=== PATIENT | female | born 1945 | race African-American/Black ===

== ENCOUNTER 2021-10-06 13:49 | Outpatient (CLI) | payer MEDICARE, MEDICAID, SELFPAY | END 2021-10-06 13:50 | disposition home or self-care (01) | LOC: ANHAUDIO 13:51 | PROVIDERS: Visit Provider Otolaryngology | DX: H90.3 Sensorineural hearing loss, bilateral (principal) | CPT/HCPCS: 92557; 92567 ==

== ENCOUNTER 2021-12-21 09:49 | Outpatient (RCR) | payer MEDICARE, MEDICAID, SELFPAY | END 2021-12-21 23:59 | disposition home or self-care (01) | LOC: ANHAUDIO 09:49 | PROVIDERS: PCP Otolaryngology; Visit Provider Otolaryngology | DX: Z46.1 Encounter for fitting and adjustment of hearing aid (principal) | CPT/HCPCS: V5160; V5261 ==

== ENCOUNTER 2023-08-10 02:51 | Observation (INO) | payer MEDICARE, MEDICAID, SELFPAY ==
[2023-08-10] VITALS (12 sets, daily range): BP systolic 92–128; BP diastolic 46–69; PULSE 74–90; RESP 13–22; TEMP 36.1–36.5; O2SAT 94–100; BMI 24.3
--- NOTE | ~2023-08-10 | US_ITS ---
EXAMINATION: US venous doppler [facility] DATE: 08/10/2023 14:33 INDICATION: Asymmetric lower limb swelling TECHNIQUE: Grayscale ultrasound images without and with compression and Doppler ultrasound images of the bilateral lower extremity veins were obtained. COMPARISON: None. FINDINGS: The visualized portions of right common femoral vein, profunda (deep) femoral vein, femoral vein, pop liteal vein, posterior tibial veins, peroneal veins, gastrocnemius vein and greater saphenous vein ou tflow are patent. The visualized portions of left common femoral vein, profunda femoral vein, femoral vein, popliteal v ein, posterior tibial veins, peroneal veins, gastrocnemius vein and greater saphenous vein outflow ar e patent. IMPRESSION: 1. No deep venous thrombosis in either lower limb. Reviewed, dictated and finalized at location A. RACT IMPLEMENTATION ANALYST
--- NOTE | ~2023-08-10 | CT_ITS ---
Noncontrast CT scan of the lumbar spine CLINICAL HISTORY: Weakness TECHNIQUE: Axial noncontrast imaging of the lumbar spine was performed. Sagittal and coronal reformat jose antonio images were constructed. Dose reduction technique was used on this scan by utilizing automated ex posure control and iterative reconstruction technique. The dose-length product (DLP) was 1314.77 mGy- cm. FINDINGS: There is no fracture or subluxation of the lumbar spine. Vertebral bodies maintain normal h eight and alignment. At L1-L2, there is minimal disc bulge. No spinal canal stenosis or neural foraminal narrowing. At L2-L3, there is mild disc bulge and mild facet arthropathy. Possible minimal central canal stenosi s. There is mild to moderate left neural foraminal narrowing. Right neural foramen preserved. At L3-L4, there is moderate to advanced degenerative disc narrowing. Diffuse disc bulge and advanced facet arthropathy result in moderate to advanced spinal canal stenosis/thecal sac compression. There is moderate to severe left neural foraminal narrowing, and mild right neural foraminal narrowing. At L4-L5, there is severe degenerative disc narrowing. Disc bulge and facet arthropathy result in mod erate central canal stenosis/thecal sac compression. There is mild left neural foraminal narrowing. R ight neural foramen preserved. At L5-S1, there is moderate to advanced degenerative disc narrowing. Diffuse disc bulge and facet art hropathy are present, with moderate to severe spinal canal stenosis/thecal sac compression. There is severe bilateral neural foraminal narrowing, left worse than right. Large amount of stool present the rectum, suggestive of fecal impaction. Extensive atherosclerotic ca lcifications of the aorta are present. There is a 2.8 cm right adrenal nodule, a 1.9 cm left adrenal nodule. These are indeterminate by Hounsfield units. Paravertebral soft tissues otherwise are unremar kable. Impression: No fracture or subluxation. Degenerative spondylosis, especially at L4-L5 and L5-S1. 2.8 cm right adrenal nodule, and 1.9 cm left adrenal nodule, indeterminate. Consider follow-up MR to attempt to confirm adenoma. Reviewed, dictated and finalized at location M. OTICS PROSTHETICS TECHNICIAN Impression: No fracture or subluxation. Degenerative spondylosis, especially at L4-L5 and L5-S1. 2.8 cm right adrenal nodule, and 1.9 cm left adrenal nodule, indeterminate. Con contract project manager follow-up MR to attempt to confirm adenoma.
--- NOTE | ~2023-08-10 | CT_ITS ---
Clinical Indication: Weakness, rib fracture CT Scan of the Chest, Abdomen, and Pelvis without Contrast: Technique: Contiguous sections were acquired throughout the chest, abdomen, and pelvis without IV con trast administration. Dose reduction technique was used on this scan by utilizing automated exposure control and iterative reconstruction technique. The dose-length product (DLP) was 944.18 mGy-cm. Findings: There is no evidence of any significant mediastinal, hilar or axillary lymphadenopathy. There are ext ensive atherosclerotic calcifications of the aorta and coronary arteries. There is no evidence of pleural or pericardial effusion. There are patchy areas of nodularity/tree-in-bud opacity in the inferior right upper lobe, most ever tible with infectious process. There is a fracture of the posterior left ninth rib, though this may b e chronic. Correlate for point tenderness. No other fracture evident. The liver, spleen, pancreas, gallbladder, and kidneys are within normal limits. There is a 2.8 cm rig ht adrenal nodule, with Hounsfield units of 20. There is a 1.9 cm low-density left adrenal nodule, co mpatible with adenoma. There are extensive atherosclerotic calcifications of the aorta. No lymphaden opathy. No bowel obstruction or bowel wall thickening. There is large amount of stool at the rectum, suggesti ve of fecal impaction. Urinary bladder is unremarkable. No adnexal mass seen. No ascites. Impression: Fracture of the posterior left ninth rib, with appearance suggestive of chronic fracture deformity. C orrelate for point tenderness. Patchy areas of nodularity/tree-in-bud opacities in the inferior right upper lobe, compatible with pn eumonia/infection. 1.9 cm left adrenal adenoma. 2.8 cm right adrenal nodule is indeterminate by Hounsfield units, though likely an additional adenoma. Consider MR to attempt to confirm this. Fecal impaction. Reviewed, dictated and finalized at location . EN EQUIPMENT AIDE Impression: Fracture of the posterior left ninth rib, with appearance suggestive of chronic fracture deformity. Correlate for point tenderness. Patchy areas of nodularity/tree-in-bud opacities in the inferior right upper lo be, compatible with pneumonia/infection. 1.9 cm left adrenal adenoma. 2.8 cm right adrenal nodule is indeterminate by Ho unsfield units, though likely an additional adenoma. Consider MR to attempt to confirm this. Fecal impaction.
--- NOTE | ~2023-08-10 | CT_ITS ---
CT head without contrast Indication: Weakness Technique: Serial scans were obtained through the brain without the administration of contrast. Dose reduction technique was used on this scan by utilizing automated exposure control and iterative recon struction technique. The dose-length product (DLP) was 605.33 mGy-cm. Findings: There is no evidence of intracranial hemorrhage, mass lesion, or acute infarct. Small chron ic lacunar right basal ganglia infarct noted. The ventricles and subarachnoid spaces are dilated, con sistent with mild atrophy. Low attenuation regions are seen within the periventricular white matter bilaterally, likely representing changes from chronic microvascular ischemic disease. There is no leif dence of edema, mass effect or midline shift. There is mild sinus disease of the ethmoid sinuses, sp henoid sinuses, and maxillary sinuses. The remaining visualized paranasal sinuses and mastoid air syeda ls are clear. Impression: No intracranial hemorrhage, mass, or acute infarct. Small chronic lacunar infarct in the right basal ganglia. Atrophy and chronic white matter changes, as above. Mild sinusitis, as above. Reviewed, dictated and finalized at location . [employer] Impression: No intracranial hemorrhage, mass, or acute infarct. Small chronic lacunar infarct in the right basal ganglia. Atrophy and chronic white matter changes, as above. Mild sinusitis, as above.
--- NOTE | ~2023-08-10 | XR_ITS ---
Portable chest x-ray Comparison: None Clinical History: Weakness Findings: Mild haziness in the right upper lobe. Left lung clear. Cardiomediastinal silhouette is n ow frankly enlarged. Vascular stents noted left axillary region. There is fracture versus postoperati ve change involving the posterior left eighth rib. Impression: Mild haziness right upper lobe. Correlate for asymmetric pulmonary edema versus infection. Fracture versus postoperative change of the posterior left eighth rib. Reviewed, dictated and finalized at location [employer] Impression: Mild haziness right upper lobe. Correlate for asymmetric pulmonary edema versus infection. Fracture versus postoperative change of the posterior left eighth rib.
--- NOTE | 2023-08-10 02:58 | ECG_ITS ---
Measurements Intervals [place] Rate: 87 P: 6 WA: 167 QRS: -2 QRSD: 76 T: 77 QT: 369 QTc: 446 Interpretive Statements SINUS RHYTHM LEFT VENTRICULAR HYPERTROPHY AND ST-T CHANGE [VOLTAGE CRITERIA PLUS ST/T ABNORMALITY] INFERIOR MYOCARDIAL INFARCTION , OF INDETERMINATE AGE WITH POSTERIOR EXTENSION [40+ ms Q WAVE AND/OR ST/T ABNORMALITY IN II/aV ABNORMAL ECG NO PREVIOUS ECG AVAILABLE FOR COMPARISON Electronically Signed On 08-10-2023 12:39:01 [facility] by Steve Corbett M.D.
[2023-08-10 03:26] LABS: Basophils Absolute Auto 0.1 K/mm3 (0.0-0.1); Basophils Percent Auto 0.5 % (0.2-1.2); Eosinophils Absolute Auto 0.3 K/mm3 (0-0.3); Eosinophils Percent Auto 2.6 % (0-4.4); Hematocrit 33.1 % (37.0-47.0); Hemoglobin 9.8 g/dL (12.0-15.0); Immature Granulocyte Percent A 0.9 % (0-0.5); Lymphocytes Absolute Auto 1.14 K/mm3 (0.9-3.2); Lymphocytes Percent Auto 10.3 % (18.3-44.2); Mean Corpuscular HGB Conc 29.6 g/dl (32-36); Mean Corpuscular Hemoglobin 30.6 pg (26-34); Mean Corpuscular Volume 103.4 fl (80-100); Mean Platelet Volume 9.5 fl (7.4-10.4); Monocytes Absolute Auto 0.8 K/mm3 (0.1-0.6); Monocytes Percent Auto 7.3 % (2.6-8.5); Neutrophils Absolute Auto 8.7 K/mm3 (1.3-6.7); Neutrophils Percent Auto 78.4 % (45.5-73.1); Nucleated Red Blood Cells Absolute Auto 0.1 K/mm3 (0.0-0.012); Nucleated Red Blood Cells Perc 0.7 % (0.0-0.2); Platelet Count Result 243 k/mm3 (150-375); Red Cell Distribution Width 15.7 % (11.5-14.5); White Blood Count 11.1 K/mm3 (4.5-10.0)
--- NOTE | 2023-08-10 03:30 | ED.GENADULT ---
HPI - General Adult General Chief complaint: Weakness Stated complaint: GENERALIZED WEAKNESS Source: patient and other (retirement records) Limitations: altered mental status History of Present Illness HPI narrative: Patient is a 78-year-old female presents to the emergency department by EMS from [facility] [place] for weakness. Per EMS the facility staff stated the patient is normally able to get up and walk by herself but was unable to do so today. Patient is typically alert and oriented x3. Patient has a known history of diabetes mellitus, hypertension, hyperlipidemia, end-stage renal disease on hemodialysis, cognitive communication deficit, GERD , neuropathy, anemia, major depressive disorder. Patient denies any current complaints. Patient knows what year it is and what her name is and where she has currently. Patient denies any pain anywhere, recent injuries, fever, vomiting, abdominal pain, chest pain, difficulty breathing, diarrhea, bloody bowel movements. Patient denies any numbness or focal weakness pain admits to feeling generally weak and tired. Patient is to a slight cough, unsure if there is any sputum production. Patient admits to being on hemodialysis and receiving dialysis regularly as she is supposed to be. patient denies changes in her speech or difficulty swallowing or vision changes. Unknown last known well. Related Data Allergies Allergy/AdvReac Type Severity Reaction Status Date / Time No Known Allergies Allergy Verified 08/10/23 03:27 Review of Systems Review of Systems: A 10 system review of systems was completed on the patient and is negative except for what is stated in the HPI. Nursing and ancillary documentation was reviewed. PMFSH Comments At time of signature, I have reviewed and agree with nursing past medical, surgical, social and family history unless otherwise noted. Please see the nursing chart for further information. There is no relevant family history pertinent to the presenting complaint. Exam Narrative: CONST: No acute distress. Somnolent. HENMT: Head is normocephalic and atraumatic. Dry mucous membranes. No posterior oropharynx erythema. EYES: No conjunctival icterus, injection, or pallor. PERRL. Extraocular motions intact. No nystagmus. NECK: No meningeal signs. No JVD. RESP: Able to speak in full sentences. Normal respiratory effort. CTAB. CARDIO: Regular rate. Regular rhythm. 2+ DP and radial pulses bilaterally. Left upper extremity fistula with palpable thrill and no signs of infection. GI: Nondistended. No tenderness to palpation. Soft. : No CVA tenderness to palpation. SKIN: No rashes or lesions noted on exposed skin. NEURO: Oriented x2-3. Moves all extremities. No focal unilateral weakness. Business Operations Consultant strength is 5/5 bilateral upper extremities. Plantar flexion of the bilateral ankles is 5/5. Sensation intact to noxious stimuli in all 4 extremities. No pronator drift. Limited testing of visual reyna due to patient noncompliance however visual reyna intact to threat in all 4 quadrants bilaterally. no facial asymmetry. EXTREM/MSK/BACK: No pedal edema. PSYCH: Normal affect. Course Vital Signs Vital signs: Vital Signs Temperature 97.6 F 08/10/23 02:52 Pulse Rate 88 08/10/23 02:52 Respiratory Rate 20 08/10/23 02:52 Blood Pressure 128/57 L 08/10/23 02:52 Pulse Oximetry 94 08/10/23 02:52 Oxygen Delivery Room Air 08/10/23 02:52 Temperature 97.6 F 08/10/23 02:52 Pulse Rate 87 08/10/23 06:22 Respiratory Rate 21 H 08/10/23 06:22 Blood Pressure 112/61 08/10/23 06:22 Pulse Oximetry 99 08/10/23 06:22 Oxygen Delivery Room Air 08/10/23 04:35 Medical Decision Making [facility] Narrative Medical decision making narrative: Patient presents with the above complaint. Initial vitals are remarkable for no significant abnormalities. Physical examination as noted above. Plan discussed: Laboratory anal
[2023-08-10 03:34] LABS: Hypochromasia 1+ (NORMAL); Platelet Estimate Adequate (Adequate); Schistocytes None Seen (NORMAL)
[2023-08-10 03:37] LABS: INR 1.1; Prothrombin Time 14.2 Seconds (11.1-14.7)
[2023-08-10 03:38] LABS: Alanine Aminotransferase 16 U/L (6-35); Albumin Level 4.2 g/dL (3.5-5.1); Alkaline Phosphatase 121 U/L (38-126); Anion Gap 8 mmol/L (8-16); Aspartate Amino Transferase 26 U/L (14-36); Bilirubin,Total 0.6 mg/dL (0.2-1.3); Blood Urea Nitrogen 39 mg/dL (7-17); Calcium 10.4 mg/dL (8.4-10.2); Carbon Dioxide 37 mmol/L (22-30); Chloride 91 mmol/L (98-107); Estimated CRCL calculation 7 ml/min; Estimated Glomerular Filt Rate 9; Glucose 143 mg/dL (65-110); Lactic Acid Reflex 2.1 mmol/L (0.7-2.0); Lipase 163 U/L (23-300); Magnesium 2.8 mg/dL (1.6-2.3); Partial Thromboplastin Time 37.3 SECONDS (22.3-36.8); Potassium 4.7 mmol/L (3.4-5.0); Sodium 136 mmol/L (137-145)
[2023-08-10 03:50] LABS: Troponin I 0.023 ng/mL (0.000-0.034)
[2023-08-10] MEDS: SODIUM CHLORIDE 0.9% IV 500 ML 999 ML IV CONT (03:53)
[2023-08-10 03:57] LABS: Fractional Inspired Oxygen 21 %; HCO3 VBG 32.7 mEq/l (24.0-30.0); PCO2 VBG 50.6 mmHg (42.0-48.0)
[2023-08-10 03:58] LABS: Device ROOM AIR; PO2 VBG < 27.0 mmHg (35.0-45.0); pH VBG 7.428 (7.300-7.400)
[2023-08-10 04:09] LABS: Influenza A QL RT-PCR Negative (Negative); Influenza B QL RT-PCR Negative (Negative); RSV RNA, RT-PCR Positive (Negative); SARS-CoV-2 RNA PCR Negative (Negative)
[2023-08-10 04:12] LABS: Appearance Urine Turbid (Clear); Bacteria Urine 4+ /hpf; Bilirubin Urine Negative (Negative); Blood Urine 1+ (Negative); Color Urine Yellow (Yellow); Glucose Urine UA Negative (Negative); Ketones Urine Negative (Negative); Leukocyte Esterase Ur 3+ LEU/UL (Negative); Need Manual Microscopic Reviewed; Nitrate Urine Negative (Negative); Protein Urine 2+ mg/dL (Negative); Specific Grav Ur 1.012 (1.001-1.035); Squamous Epithelial Cell Urine None seen /hpf (Few); Urobilinogen Urine 0.2 mg/dL (<2.0); WBC Urine >100 /hpf
[2023-08-10 04:16] LABS: Barbiturate Screen Urine Negative (Negative); Benzodiazepines Screen Urine Negative (Negative)
[2023-08-10 04:18] LABS: Add Urine Microscopic? YES
[2023-08-10 04:19] LABS: Amphetamine Screen Urine Negative (Negative); Cannabinoid Screen Urine Negative (Negative); Cocaine Screen Urine Negative (Negative); Methadone Screen Urine Negative (Negative); Phencyclidine Screen Urine Negative (Negative)
[2023-08-10 04:20] LABS: Acetaminophen < 10 ug/mL (10-30); Ethanol < 10 mg/dL (<10); Salicylate < 1.0 mg/dL (2-20)
[2023-08-10 04:35] LABS: Thyroid Stimulating Hormone Reflex 0.882 uIU/mL (0.465-4.68)
[2023-08-10 04:36] LABS: Opiate Screen Urine Negative (Negative)
[2023-08-10 05:01] LABS: Ammonia < 9 umol/L (9-30)
[2023-08-10 06:24] LABS: Reflex Lactic Acid Yes or No Add Lactic
[2023-08-10] MEDS: AZITHROMYCIN 500 MG/NS 250 ML 500 MG/250 ML BAG 250 MG IVPB (07:12)
--- NOTE | 2023-08-10 08:34 | PC.NURSE ---
Pt goes to dialysis monday, mon, mon
--- NOTE | 2023-08-10 08:36 | PC.NURSE ---
Report given to Arlet ROWE at [facility].
--- NOTE | 2023-08-10 09:12 | PC.NURSE ---
Patient denied soap suds enema, made aware.
[2023-08-10 09:26] LABS: Lactic Acid 1.4 mmol/L (0.7-2.0)
--- NOTE | 2023-08-10 10:41 | PM.IMHP ---
H&P: HPI History of Present Illness Date/Time: 08/10/23 10:41 Chief Complaint: Altered mental status Narrative: 78yo female with cognitive communication deficit, DM, ESRD and HTN here for altered mental status. Patient is alseep but arouses easily. She is alert but confused. As such, a majority of the hx is obtained from the chart. Patient is normally AOx3. According to EMS notes, patient had generalized weakness, dizziness and changes in her speech. Vital signs were stable. Patient normally able to get up and walk on her own but was unable to do so. Patient denies any symptoms except that 'I can't walk'. She has a cough but unclear if productive. ROS unreliable from the patient. She was brought to the ED for evaluation. Unclear why she was brought in at 230am. She has very been to this facility before. In the ED, patient was hemodynamically stable. WBC was 11K with macrocytic anemia with Hgb 9.8. VBG 7.43/51/27 on RA. Sodium 136, serum bicarb 37 and glucose 143. Lactic acid 2.1 (repeat 1.4) and calcium 10.4. Ammonia <9. TSH normal. UA consistent with UTI. UDS negative. COVID and influenza negative but RSV positive. EKG showing sinus mechanism, QS in inferior leads and ST-T wave changes high lateral leads. CT braiin showing no acute findings but with small chronic lacunar infarcts in right basal ganglia and atrophy. Lumbar CT showing degenerative changes. CT Ch/A/P showing probably chronic left 9th rib fracture, patchy airspace disease RUL and indeterminate bilateral adrenal adenoma but probably adenomas and fecal impaction. She was given 1 liter of fluid and Rocephin and Azithromycin. She was admitted for further care. Spoke with sister who said she was called at 230am and was told that the patient's vital signs okay but they were sending the patient to the hospital but sister does not know why. Review of Systems Review of Systems: ROS unobtainable: Yes unobtainable due to mental status [facility] Past Medical History Medical History (Updated 08/10/23 @ 11:15 by Eugenio Castillo MD) Anemia, macrocytic Cognitive communication deficit Diabetes mellitus with chronic kidney disease ESRD (end stage renal disease) Essential hypertension Gastro-esophageal reflux disease with esophagitis Hx of arterial ischemic stroke Hyperlipidemia Major depressive disorder Other idiopathic peripheral autonomic neuropathy Surgical History Surgical History (Updated 08/10/23 @ 11:03 by Eugenio Castillo MD) Surgical history unknown Family History Family History (Updated 08/10/23 @ 11:03 by Eugenio Castillo MD) Other Family history unknown Social History Social History (Updated 08/10/23 @ 11:07 by Eugenio Castillo MD) Social History: Resides at a prison in [place]. She is listed as a DNR in the nursing notes. Admit date listed as 02/04/23. Sister is listed as responsible green party. Meds Home Medications and Allergies Allergies Allergy/AdvReac Type Severity Reaction Status Date / Time No Known Allergies Allergy Verified 08/10/23 03:27 Vital Signs Vital Signs - 24 hr 08/10/23 02:52 08/10/23 04:35 08/10/23 04:45 Temperature 97.6 F Pulse Rate 88 90 Respiratory Rate 20 19 Blood Pressure 128/57 L 126/69 Pulse Oximetry 94 98 97 Oxygen Delivery Room Air Room Air 08/10/23 06:22 08/10/23 08:35 Temperature Pulse Rate 87 74 Respiratory Rate 21 H 18 Blood Pressure 112/61 99/54 L Pulse Oximetry 99 96 Oxygen Delivery Exam Narrative: AF 97.6 99/54 74 18 96% ra Gen - well-nourished, well-developed female in no acute respiratory distress who is nontoxic-appearing lying semi recumbent in bed HEENT - normocephalic. Atraumatic. Pupils equal round and reactive. Extraocular motions unable to assess. Sclera clear and anicteric. Nares patent. Oropharynx was not visualized. No oral lesions. Moist mucous membranes. Tongue was midline with small whitish coat. Palate donis symmetrically. No facial a
--- NOTE | 2023-08-10 11:54 | PC.NURSE ---
Pt denying soap suds enema, made aware gave verbal order for dulcolax 10mg suppository
--- NOTE | 2023-08-10 12:07 | PC.NURSE ---
This RN asked pt if she would allow me to place a suppository in place of the enema and patient stated i dont want none of that shit . Pt agreed to take miralax and insulin if needed.
--- NOTE | 2023-08-10 12:36 | PC.NURSE ---
This RN assessed pt for dryness, pt stated she was not wet.
--- NOTE | 2023-08-10 12:40 | ADMGEN ---
This patient, Mercy Bryson, was admitted to [facility] Surg Room 309-01. Patient/family oriented to hospital policies and general routines including ID bracelet, bed and alarms, visiting hours, pain management, procedures, bathroom and other care routines, personal items, smoking policy, room service/diet, and visiting hours. Information on how to activate the Rapid Response Team has been discussed. Patient/Family are encouraged to report perceived risks to care and to ask questions if they do not understand what they are told or what they should do.
--- NOTE | 2023-08-10 13:10 | P.CONNP_ITS ---
Assessment and Plan Assessment and plan (1) ESRD (end stage renal disease): Code(s): N18.6 - End stage renal disease Status: Chronic Assessment and Plan: * plan HD tomorrow * continue outpatient dialysis schedule of Mon/Mon/Monday * follows with Dr. Salinas at [facility] (2) Encephalopathy: Code(s): G93.40 - Encephalopathy, unspecified Status: Acute Assessment and Plan: * presumably due to infection issues (RSV, pneunmonia, and UTI) * CT of head without any acute findings * follow mentation * consider further imaging if no improvement with current therapy (3) Pneumonia: Qualifiers: Laterality: unspecified laterality Lung location: unspecified part of lung Pneumonia type: due to unspecified organism Qualified Code(s): J18.9 - Pneumonia, unspecified organism Code(s): J18.9 - Pneumonia, unspecified organism Status: Acute Assessment and Plan: * CT chest with inferior right upper lobe airspace disease * positive cough but no reported fevers * follow culture data * on antibiotics (4) Acute UTI: Code(s): N39.0 - Urinary tract infection, site not specified Status: Acute Assessment and Plan: * admission UA highly suggestive * follow-up on urine culture * on antibiotics (5) RSV infection: Code(s): B33.8 - Other specified viral diseases Status: Acute Assessment and Plan: * noted positivity by ER testing * respiratory status stable * contributing component to confusion/AMS(?) * supportive therapy (6) Weakness: Code(s): R53.1 - Weakness Status: Acute Assessment and Plan: * likely related to infectious issues as noted * PT/OT as tolerated (7) Fecal impaction in rectum: Code(s): K56.41 - Fecal impaction Status: Acute Assessment and Plan: * admisison imaging with fecal impaction * bowel regimen ordered/instituted (Miralax, enema, suppositories...etc) * follow stool output/bowel movements (8) Essential hypertension: Code(s): I10 - Essential (primary) hypertension Status: Chronic Assessment and Plan: * reasonable control at this time * follow trend of hemodynamics (9) Diabetes: Code(s): E11.9 - Type 2 diabetes mellitus without complications Status: Chronic Assessment and Plan: * follow accu-cheks * glycemic control per hospitalists I will continue follow the patient with you while she remains hospitalized and make further recommendations as deemed necessary. Thank you for allowing me to participate in the care of this patient. History of Present Illness Reason for Consult Consult date: 08/10/23 Reason for consult: end stage renal disease Chief Complaint Chief complaint: weakness History of Present Illness Narrative: The patient is a 78-year-old female with a past medical history as outlined below who presented to [facility] Emergency Room from her nursing facility for further evaluation of altered mental status. The patient is normally alert and oriented x3 and according to EMS documentation, she has had generalized weakness, dizziness, and a change in her speech pattern as noted by the nursing staff at her facility. She apparently has been hemodynamically stable and she is normally able to ambulate on her own but has not done so for undisclosed period of time. The patient also admits to this issue by stating that she cannot walk does not elaborate as to the reason wh
--- NOTE | 2023-08-10 13:10 | PM.CNNEP ---
Assessment and Plan Assessment and plan (1) ESRD (end stage renal disease): Code(s): N18.6 - End stage renal disease Status: Chronic Assessment and Plan: plan HD tomorrow continue outpatient dialysis schedule of Mon/Mon/Monday follows with Dr. Salinas at [facility] (2) Encephalopathy: Code(s): G93.40 - Encephalopathy, unspecified Status: Acute Assessment and Plan: presumably due to infection issues (RSV, pneunmonia, and UTI) CT of head without any acute findings follow mentation consider further imaging if no improvement with current therapy (3) Pneumonia: Qualifiers: Laterality: unspecified laterality Lung location: unspecified part of lung Pneumonia type: due to unspecified organism Qualified Code(s): J18.9 - Pneumonia, unspecified organism Code(s): J18.9 - Pneumonia, unspecified organism Status: Acute Assessment and Plan: CT chest with inferior right upper lobe airspace disease positive cough but no reported fevers follow culture data on antibiotics (4) Acute UTI: Code(s): N39.0 - Urinary tract infection, site not specified Status: Acute Assessment and Plan: admission UA highly suggestive follow-up on urine culture on antibiotics (5) RSV infection: Code(s): B33.8 - Other specified viral diseases Status: Acute Assessment and Plan: noted positivity by ER testing respiratory status stable contributing component to confusion/AMS(?) supportive therapy (6) Weakness: Code(s): R53.1 - Weakness Status: Acute Assessment and Plan: likely related to infectious issues as noted PT/OT as tolerated (7) Fecal impaction in rectum: Code(s): K56.41 - Fecal impaction Status: Acute Assessment and Plan: admisison imaging with fecal impaction bowel regimen ordered/instituted (Miralax, enema, suppositories...etc) follow stool output/bowel movements (8) Essential hypertension: Code(s): I10 - Essential (primary) hypertension Status: Chronic Assessment and Plan: reasonable control at this time follow trend of hemodynamics (9) Diabetes: Code(s): E11.9 - Type 2 diabetes mellitus without complications Status: Chronic Assessment and Plan: follow accu-cheks glycemic control per hospitalists I will continue follow the patient with you while she remains hospitalized and make further recommendations as deemed necessary. Thank you for allowing me to participate in the care of this patient. History of Present Illness Reason for Consult Consult date: 08/10/23 Reason for consult: end stage renal disease Chief Complaint Chief complaint: weakness History of Present Illness Narrative: The patient is a 78-year-old female with a past medical history as outlined below who presented to [facility] Emergency Room from her nursing facility for further evaluation of altered mental status. The patient is normally alert and oriented x3 and according to EMS documentation, she has had generalized weakness, dizziness, and a change in her speech pattern as noted by the nursing staff at her facility. She apparently has been hemodynamically stable and she is normally able to ambulate on her own but has not done so for undisclosed period of time. The patient also admits to this issue by stating that she cannot walk does not elaborate as to the reason why. Unfortunately, the history given by the patient on admission is questionable as she was more confused at that time. Workup and evaluation emergency room demonstrated the patient be hemodynamically stable and afebrile. Routine blood test demonstrated a mildly elevated white blood cell count, anemia presumably related to her kidney disease, and a chemistry that was consistent with her known history of end-stage renal disease. Her urinalysis was highly s
[2023-08-10] MEDS: polyethylene glycoL 3350 17 GM POWD.PACK PO (15:45)
[2023-08-10 17:47] LABS: Glucose Point of Care 165 mg/dl (65-105)
[2023-08-10] MEDS: ACETAMINOPHEN 325 MG TABLET 650 MG PO (18:28)
[2023-08-10 21:12] LABS: Glucose Point of Care 133 mg/dl (65-105)
[2023-08-10] MEDS: guaiFENesin 12 HR 600 MG TABCR PO (21:16)
[2023-08-11] VITALS (25 sets, daily range): BP systolic 102–148; BP diastolic 51–75; PULSE 60–96; RESP 12–16; TEMP 35.4–37; O2SAT 95–100
[2023-08-11] MEDS: AZITHROMYCIN 500 MG/NS 250 ML 500 MG/250 ML BAG 250 MG IVPB (05:59)
[2023-08-11 07:06] LABS: Basophils Absolute Auto 0.1 K/mm3 (0.0-0.1); Basophils Percent Auto 0.6 % (0.2-1.2); Eosinophils Absolute Auto 0.3 K/mm3 (0-0.3); Eosinophils Percent Auto 3.9 % (0-4.4); Hematocrit 28.5 % (37.0-47.0); Hemoglobin 8.7 g/dL (12.0-15.0); Immature Granulocyte Absolute 0.07 K/mm3 (0.00-0.031); Immature Granulocyte Percent A 0.9 % (0-0.5); Lymphocytes Absolute Auto 1.03 K/mm3 (0.9-3.2); Lymphocytes Percent Auto 12.7 % (18.3-44.2); Mean Corpuscular HGB Conc 30.5 g/dl (32-36); Mean Corpuscular Hemoglobin 31.3 pg (26-34); Mean Corpuscular Volume 102.5 fl (80-100); Mean Platelet Volume 9.5 fl (7.4-10.4); Monocytes Absolute Auto 0.7 K/mm3 (0.1-0.6); Neutrophils Percent Auto 73.9 % (45.5-73.1); Platelet Count Result 215 k/mm3 (150-375); Red Blood Count 2.78 M/mm3 (4.2-5.4); Red Cell Distribution Width 15.5 % (11.5-14.5); White Blood Count 8.1 K/mm3 (4.5-10.0)
[2023-08-11 07:20] LABS: Hemoglobin A1C 5.5 % (<5.7)
[2023-08-11 07:26] LABS: Iron 56 ug/dL (37-170)
[2023-08-11 07:30] LABS: Alanine Aminotransferase 15 U/L (6-35); Albumin Level 3.5 g/dL (3.5-5.1); Alkaline Phosphatase 90 U/L (38-126); Anion Gap 8 mmol/L (8-16); Aspartate Amino Transferase 32 U/L (14-36); Bilirubin,Total 0.6 mg/dL (0.2-1.3); Blood Urea Nitrogen 54 mg/dL (7-17); Calcium 9.3 mg/dL (8.4-10.2); Carbon Dioxide 33 mmol/L (22-30); Chloride 93 mmol/L (98-107); Estimated CRCL calculation 6 ml/min; Estimated Glomerular Filt Rate 7; Glucose 179 mg/dL (65-110); Magnesium 2.6 mg/dL (1.6-2.3); Phosphorus 4.2 mg/dL (2.5-4.5); Potassium 5.2 mmol/L (3.4-5.0); Sodium 134 mmol/L (137-145)
[2023-08-11 07:35] LABS: Percent Iron Saturation 23 % (20-50)
--- NOTE | 2023-08-11 07:47 | P.PNNP_ITS ---
Progress Note: A&P Assessment and Plan (1) ESRD (end stage renal disease): Code(s): N18.6 - End stage renal disease Status: Chronic Assessment and Plan: * Hemodialysis will be done today. * continue outpatient dialysis schedule of Mon/Mon/Monday * Volume status looks okay. * Blood pressure is fine * potassium was a little high. (2) Encephalopathy: Code(s): G93.40 - Encephalopathy, unspecified Status: Acute Assessment and Plan: * presumably due to infection issues (RSV, pneunmonia, and UTI) * CT of head without any acute findings * Mental status seems pretty good right now. (3) Pneumonia: Qualifiers: Laterality: unspecified laterality Lung location: unspecified part of lung Pneumonia type: due to unspecified organism Qualified Code(s): J18.9 - Pneumonia, unspecified organism Code(s): J18.9 - Pneumonia, unspecified organism Status: Acute Assessment and Plan: * CT chest with inferior right upper lobe airspace disease * positive cough but no reported fevers * Blood and urine cultures pending. * on Zithromax and ceftriaxone (4) Acute UTI: Code(s): N39.0 - Urinary tract infection, site not specified Status: Acute Assessment and Plan: * admission UA highly suggestive * follow-up on urine culture. This is still pending. * on antibiotics as above (5) RSV infection: Code(s): B33.8 - Other specified viral diseases Status: Acute Assessment and Plan: * noted positivity by ER testing * respiratory status stable * The patient is on isolation * contributing component to confusion/AMS(?) * supportive therapy (6) Weakness: Code(s): R53.1 - Weakness Status: Acute Assessment and Plan: * likely related to infectious issues as noted * PT/OT as tolerated (7) Fecal impaction in rectum: Code(s): K56.41 - Fecal impaction Status: Acute Assessment and Plan: * admisison imaging with fecal impaction * bowel regimen ordered/instituted (Miralax, enema, suppositories...etc) * follow stool output/bowel movements (8) Essential hypertension: Code(s): I10 - Essential (primary) hypertension Status: Chronic Assessment and Plan: * blood pressure good at 1:14 a.m. (9) Diabetes: Code(s): E11.9 - Type 2 diabetes mellitus without complications Status: Chronic Assessment and Plan: * follow accu-cheks * glycemic control per hospitalists Subjective Date/time seen: 08/11/23 07:47 Interval history: Patient is comfortable in bed. No cough. Breathing fine off oxygen. Review of Systems Cardiovascular: Cardiovascular: Reports no additional cardiovascular complaints Respiratory: Respiratory: Reports no additional respiratory complaints Gastrointestinal: Gastrointestinal: Reports no additional gastrointestinal complaints Genitourinary: Genitourinary: Reports no additional female genitourinary complaints Exam Narrative: WDWN in NAD skin no rash head ncat lungs clear cor reg no rub abd BS+ nontender and soft ext no edema. Objective Data Vital Signs Vital Signs: Vital Signs - 24 hr 08/10/23 08:35 08/10/23 12:21 08/10/23 14:09 Temperature Pulse Rate 74 80
--- NOTE | 2023-08-11 07:47 | PM.PNNEP ---
Progress Note: A&P Assessment and Plan (1) ESRD (end stage renal disease): Code(s): N18.6 - End stage renal disease Status: Chronic Assessment and Plan: Hemodialysis will be done today. continue outpatient dialysis schedule of Mon/Mon/Monday Volume status looks okay. Blood pressure is fine potassium was a little high. (2) Encephalopathy: Code(s): G93.40 - Encephalopathy, unspecified Status: Acute Assessment and Plan: presumably due to infection issues (RSV, pneunmonia, and UTI) CT of head without any acute findings Mental status seems pretty good right now. (3) Pneumonia: Qualifiers: Laterality: unspecified laterality Lung location: unspecified part of lung Pneumonia type: due to unspecified organism Qualified Code(s): J18.9 - Pneumonia, unspecified organism Code(s): J18.9 - Pneumonia, unspecified organism Status: Acute Assessment and Plan: CT chest with inferior right upper lobe airspace disease positive cough but no reported fevers Blood and urine cultures pending. on Zithromax and ceftriaxone (4) Acute UTI: Code(s): N39.0 - Urinary tract infection, site not specified Status: Acute Assessment and Plan: admission UA highly suggestive follow-up on urine culture. This is still pending. on antibiotics as above (5) RSV infection: Code(s): B33.8 - Other specified viral diseases Status: Acute Assessment and Plan: noted positivity by ER testing respiratory status stable The patient is on isolation contributing component to confusion/AMS(?) supportive therapy (6) Weakness: Code(s): R53.1 - Weakness Status: Acute Assessment and Plan: likely related to infectious issues as noted PT/OT as tolerated (7) Fecal impaction in rectum: Code(s): K56.41 - Fecal impaction Status: Acute Assessment and Plan: admisison imaging with fecal impaction bowel regimen ordered/instituted (Miralax, enema, suppositories...etc) follow stool output/bowel movements (8) Essential hypertension: Code(s): I10 - Essential (primary) hypertension Status: Chronic Assessment and Plan: blood pressure good at 1:14 a.m. (9) Diabetes: Code(s): E11.9 - Type 2 diabetes mellitus without complications Status: Chronic Assessment and Plan: follow accu-cheks glycemic control per hospitalists Subjective Date/time seen: 08/11/23 07:47 Interval history: Patient is comfortable in bed. No cough. Breathing fine off oxygen. Review of Systems Cardiovascular: Cardiovascular: Reports no additional cardiovascular complaints Respiratory: Respiratory: Reports no additional respiratory complaints Gastrointestinal: Gastrointestinal: Reports no additional gastrointestinal complaints Genitourinary: Genitourinary: Reports no additional female genitourinary complaints Exam Narrative: WDWN in NAD skin no rash head ncat lungs clear cor reg no rub abd BS+ nontender and soft ext no edema. Objective Data Vital Signs Vital Signs: Vital Signs - 24 hr 08/10/23 08:35 08/10/23 12:21 08/10/23 14:09 Temperature Pulse Rate 74 80 Respiratory Rate 18 16 Blood Pressure 99/54 L 92/66 L Pulse Oximetry 96 98 Oxygen Delivery Room Air 08/10/23 14:50 08/10/23 14:00 08/10/23 16:00 Temperature 97.7 F Pulse Rate 87 90 Respiratory Rate 22 H Blood Pressure 119/46 L Pulse Oximetry 100 Oxygen Delivery Room Air 08/10/23 21:36 08/10/23 20:00 08/11/23 00:00 Temperature 97.0 F L Pulse Rate 78 81 77 Respiratory Rate 13 Blood Pressure 117/56 L Pulse Oximetry 99 Oxygen Delivery 08/11/23 04:00 08/11/23 06:00 Temperature 96.9 F L Pulse Rate 76 78 Respiratory Rate 12 Blood Pressure 114/54 L Pulse Oximetry 95 Oxygen Delivery Intake/Output Intake/Outpu
[2023-08-11 07:53] LABS: Glucose Point of Care 179 mg/dl (65-105)
[2023-08-11 08:36] LABS: Folic Acid 10.8 ng/mL (2.76->20)
[2023-08-11 08:46] LABS: Hepatitis B Surface Antigen Negative (Negative)
[2023-08-11 09:04] LABS: Hepatitis B Surface Anti Res Negative
[2023-08-11 09:52] LABS: MRSA (PCR) NOT DETECTED (NOT DETECTE)
[2023-08-11] MEDS: EPOETIN ALFA-EPBX 10,000 UNITS/ML VIAL 10000 UNITS IV PUSH (10:30)
[2023-08-11] MEDS: SODIUM CHLORIDE 0.9% IV 1,000 ML 999 ML IV CONT (10:32)
--- NOTE | 2023-08-11 12:43 | PCPTNOTE ---
The patient treatment was not able to be completed in A.M. due to patient out of room for dialysis. Will plan to continue treatment per plan of care.
[2023-08-11 12:48] LABS: Glucose Point of Care 151 mg/dl (65-105)
[2023-08-11] MEDS: ACETAMINOPHEN 325 MG TABLET 650 MG PO (13:31)
[2023-08-11] MEDS: guaiFENesin 12 HR 600 MG TABCR PO ×2 (13:32→21:23)
[2023-08-11] MEDS: GABAPENTIN 300 MG CAPSULE PO ×2 (13:35→17:08)
[2023-08-11] MEDS: CALCIUM ACETATE 667 MG TABLET 1334 MG PO ×2 (13:39→18:37)
--- NOTE | 2023-08-11 13:59 | PM.IMPN ---
Progress Note: A&P Assessment and Plan (1) Encephalopathy: Code(s): G93.40 - Encephalopathy, unspecified Status: Acute Assessment and Plan: Patient brought into the ED for altered mental status and weakness. Probably related to infectious etiology with RSV, PNA and UTI. Has ESRD but doubt uremia. 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 Could explain LUE weakness. TSH and B12, folate normal. Treatment as below. Symptoms better. (2) Elevated lactic acid level: Code(s): R79.89 - Other specified abnormal findings of blood chemistry Status: Acute Assessment and Plan: Lactic only mildly elevated. [place] related to infectious etiology and/or ESRD. Repeat level normal. Does not meet criteria for sepsis. (3) Pneumonia: Qualifiers: Laterality: unspecified laterality Lung location: unspecified part of lung Pneumonia type: due to unspecified organism Qualified Code(s): J18.9 - Pneumonia, unspecified organism Code(s): J18.9 - Pneumonia, unspecified organism Status: Acute Assessment and Plan: CT chest showing inferior right upper lobe airspace disease c/w PNA. She has a cough but no dcumented fevers or elevated WBC. BCx NGTD She was started on Rocephin and Azithro which we will continue (4) Acute UTI: Code(s): N39.0 - Urinary tract infection, site not specified Status: Acute Assessment and Plan: UA is consistent with UTI. UCx collected. Rocephin started. UCx pending. Follow up on UCx results. (5) RSV infection: Code(s): B33.8 - Other specified viral diseases Status: Acute Assessment and Plan: Patient with RSV. Probably contrinuting to her confusion On room air Continue supportive care (6) Weakness: Code(s): R53.1 - Weakness Status: Acute Assessment and Plan: Related to above. PT/OT (7) Anemia, macrocytic: Code(s): D53.9 - Nutritional anemia, unspecified Status: Acute Assessment and Plan: Patient with macrocytic anemia. She appears to have chronic anemia by report probably related to ESRD but unclear on baseline B12/folate normal. Iron 56, TIBC 245, 23%. Ferritin 475 Monitor and transfuse as needed. (8) Diabetes mellitus with chronic kidney disease: Code(s): E11.22 - Type 2 diabetes mellitus with diabetic chronic kidney disease Status: Acute Assessment and Plan: A1c 5.5. The patient's blood glucose was reviewed on 08/11 Glucose remains well controlled. Continue AccuCheks covering with sliding scale. Hypoglycemia protocol available as needed. Continue to monitor. (9) Essential hypertension: Code(s): I10 - Essential (primary) hypertension Status: Chronic Assessment and Plan: Patient's blood pressure was reviewed on 08/11 Blood pressure remains well controlled. Will continue current medications. (10) ESRD (end stage renal disease): Code(s): N18.6 - End stage renal disease Status: Chronic Assessment and Plan: [place] with ESRD relate to DM and HTN(?). HD -. Nephrology consult Resume HD here (11) Cognitive communication deficit: Code(s): R41.841 - Cognitive communication deficit Status: Acute Assessment and Plan: She has an underlying cognitive communication deficit of unclear significance. Probably related to her stroke. Unlikely that she aspirated into the right upper lobe given normal anatomy. Add ASA. Continue Crestor Continue PT and OT. (12) Fecal impaction in rectum: Code(s): K56.41 - Fecal impaction Status: Acute Assessment and Plan: Imaging shows fecal impaction. Started MiraLax. Soapsuds enema was refused Dulcolax suppositories daily x3 days Monitor stool output. Plan Asymmetric edema - doppler negative. Follow DVT prophylaxis - lovenox Code status - full but will
[2023-08-11 16:22] LABS: Glucose Point of Care 267 mg/dl (65-105)
[2023-08-11] MEDS: carvediloL 3.125 MG TABLET PO (17:08)
[2023-08-11] MEDS: INSULIN ASPART (*BKC) 100 UNITS/ML SUB-Q (17:13)
--- NOTE | 2023-08-11 19:00 | PC.NURSE ---
Pt went to dialysis this morning and tolerated well. Pt has been compliant with care and medication. Pt reported left leg pain. Pt was treated with scheduled gabapentin and tylenol. Pt denies any further pain. Pt had bowel movement and was cleaned up by tech and myself. Pt has had one episode of emesis this evening right at shift changes. Pt has been monitored for any changes in status while here.
[2023-08-11] MEDS: ROSUVASTATIN 5 MG TABLET PO (21:23)
[2023-08-11] MEDS: NORTRIPTYLINE HCL 25 MG CAPSULE PO (21:23)
[2023-08-11] MEDS: INSULIN GLARGINE (*BKC) 100 UNITS/ML 10 UNITS SUB-Q (21:25)
[2023-08-11 21:26] LABS: Glucose Point of Care 224 mg/dl (65-105)
[2023-08-12] VITALS (8 sets, daily range): BP systolic 118–120; BP diastolic 60–63; PULSE 76–88; RESP 12–16; TEMP 36.3–36.5; O2SAT 95–97
[2023-08-12] MEDS: AZITHROMYCIN 500 MG/NS 250 ML 500 MG/250 ML BAG 250 MG IVPB (05:33)
[2023-08-12 06:33] LABS: Hematocrit 28.7 % (37.0-47.0); Hemoglobin 8.6 g/dL (12.0-15.0); Mean Corpuscular Hemoglobin 30.6 pg (26-34); Mean Corpuscular Volume 102.1 fl (80-100); Mean Platelet Volume 9.6 fl (7.4-10.4); Platelet Count Result 222 k/mm3 (150-375); Red Blood Count 2.81 M/mm3 (4.2-5.4); Red Cell Distribution Width 15.6 % (11.5-14.5); White Blood Count 8.2 K/mm3 (4.5-10.0)
[2023-08-12 06:45] LABS: Albumin Level 3.4 g/dL (3.5-5.1); Anion Gap 9 mmol/L (8-16); Blood Urea Nitrogen 37 mg/dL (7-17); Calcium 9.1 mg/dL (8.4-10.2); Carbon Dioxide 26 mmol/L (22-30); Chloride 100 mmol/L (98-107); Estimated CRCL calculation 8 ml/min; Estimated Glomerular Filt Rate 9; Glucose 144 mg/dL (65-110); Magnesium 2.5 mg/dL (1.6-2.3); Phosphorus 3.4 mg/dL (2.5-4.5); Potassium 4.3 mmol/L (3.4-5.0); Sodium 135 mmol/L (137-145)
[2023-08-12 07:39] LABS: Glucose Point of Care 178 mg/dl (65-105)
[2023-08-12] MEDS: CALCIUM ACETATE 667 MG TABLET 1334 MG PO ×3 (09:25→18:11)
[2023-08-12] MEDS: carvediloL 3.125 MG TABLET PO ×2 (09:26→18:12)
[2023-08-12] MEDS: DOCUSATE SODIUM 100 MG CAPSULE PO ×2 (09:27→18:12)
[2023-08-12] MEDS: guaiFENesin 12 HR 600 MG TABCR PO ×2 (09:27→20:17)
[2023-08-12] MEDS: polyethylene glycoL 3350 17 GM POWD.PACK PO (09:27)
[2023-08-12] MEDS: ENOXAPARIN 30 MG/0.3 ML SYRINGE SUB-Q (09:27)
[2023-08-12] MEDS: GABAPENTIN 300 MG CAPSULE PO ×3 (09:27→18:12)
[2023-08-12] MEDS: BISACODYL 10 MG SUPPOSITORY RECTAL (09:27)
[2023-08-12] MEDS: ASPIRIN 81 MG CHEWABLE TABLET PO (09:27)
--- NOTE | 2023-08-12 10:27 | P.PNNP_ITS ---
Progress Note: A&P Assessment and Plan (1) ESRD (end stage renal disease): Code(s): N18.6 - End stage renal disease Status: Chronic Assessment and Plan: * Hemodialysis went well yesterday. * continue outpatient dialysis schedule of Mon/Mon/Monday * Volume status looks okay. * Blood pressure is doing well * potassium was a little high. (2) Encephalopathy: Code(s): G93.40 - Encephalopathy, unspecified Status: Acute Assessment and Plan: * mental status seems improved. (3) Pneumonia: Qualifiers: Laterality: unspecified laterality Lung location: unspecified part of lung Pneumonia type: due to unspecified organism Qualified Code(s): J18.9 - Pneumonia, unspecified organism Code(s): J18.9 - Pneumonia, unspecified organism Status: Acute Assessment and Plan: * CT chest with inferior right upper lobe airspace disease * positive cough but no reported fevers * Blood culture negative so far.and urine culture shows E coli. * on Zithromax and ceftriaxone (4) Acute UTI: Code(s): N39.0 - Urinary tract infection, site not specified Status: Acute Assessment and Plan: * admission UA highly suggestive * E coli in the urine. * on antibiotics as above (5) RSV infection: Code(s): B33.8 - Other specified viral diseases Status: Acute Assessment and Plan: * noted positivity by ER testing * No cough or shortness of breath. * On isolation (6) Weakness: Code(s): R53.1 - Weakness Status: Acute Assessment and Plan: * likely related to infectious issues as noted * PT/OT as tolerated (7) Fecal impaction in rectum: Code(s): K56.41 - Fecal impaction Status: Acute Assessment and Plan: * admisison imaging with fecal impaction * bowel regimen ordered/instituted (Miralax, enema, suppositories...etc) * follow stool output/bowel movements (8) Essential hypertension: Code(s): I10 - Essential (primary) hypertension Status: Chronic Assessment and Plan: * blood pressure good at 1:14 a.m. (9) Diabetes: Code(s): E11.9 - Type 2 diabetes mellitus without complications Status: Chronic Assessment and Plan: * follow accu-cheks * glycemic control per hospitalists Subjective Date/time seen: 08/12/23 10:27 Interval history: [place] is feeling pretty good right now. No chest pain or shortness of breath. Exam Narrative: WDWN in NAD skin no rash head ncat lungs clear Bilaterally cor reg no rub abd BS+ nontender and soft ext no edema or cyanosis. Objective Data Vital Signs Vital Signs: Vital Signs - 24 hr 08/11/23 12:23 08/11/23 10:30 08/11/23 10:45 Temperature 98.1 F Pulse Rate 94 87 85 Respiratory Rate 16 Blood Pressure 126/74 114/65 123/61 Pulse Oximetry 08/11/23 11:00 08/11/23 11:15 08/11/23 11:30 Temperature Pulse Rate 88 91 96 Respiratory Rate Blood Pressure 140/74 132/74 131/67 Pulse Oximetry 08/11/23 12:00 08/11/23 12:08 08/11/23 14:00 Temperature 98.3 F Pulse Rate 95 89 93 Respiratory Rate 16 Blood Pressure 102/58 L 127/69 102/54 L Pulse Oximetr
--- NOTE | 2023-08-12 10:27 | PM.PNNEP ---
Progress Note: A&P Assessment and Plan (1) ESRD (end stage renal disease): Code(s): N18.6 - End stage renal disease Status: Chronic Assessment and Plan: Hemodialysis went well yesterday. continue outpatient dialysis schedule of Mon/Mon/Monday Volume status looks okay. Blood pressure is doing well potassium was a little high. (2) Encephalopathy: Code(s): G93.40 - Encephalopathy, unspecified Status: Acute Assessment and Plan: mental status seems improved. (3) Pneumonia: Qualifiers: Laterality: unspecified laterality Lung location: unspecified part of lung Pneumonia type: due to unspecified organism Qualified Code(s): J18.9 - Pneumonia, unspecified organism Code(s): J18.9 - Pneumonia, unspecified organism Status: Acute Assessment and Plan: CT chest with inferior right upper lobe airspace disease positive cough but no reported fevers Blood culture negative so far.and urine culture shows E coli. on Zithromax and ceftriaxone (4) Acute UTI: Code(s): N39.0 - Urinary tract infection, site not specified Status: Acute Assessment and Plan: admission UA highly suggestive E coli in the urine. on antibiotics as above (5) RSV infection: Code(s): B33.8 - Other specified viral diseases Status: Acute Assessment and Plan: noted positivity by ER testing No cough or shortness of breath. On isolation (6) Weakness: Code(s): R53.1 - Weakness Status: Acute Assessment and Plan: likely related to infectious issues as noted PT/OT as tolerated (7) Fecal impaction in rectum: Code(s): K56.41 - Fecal impaction Status: Acute Assessment and Plan: admisison imaging with fecal impaction bowel regimen ordered/instituted (Miralax, enema, suppositories...etc) follow stool output/bowel movements (8) Essential hypertension: Code(s): I10 - Essential (primary) hypertension Status: Chronic Assessment and Plan: blood pressure good at 1:14 a.m. (9) Diabetes: Code(s): E11.9 - Type 2 diabetes mellitus without complications Status: Chronic Assessment and Plan: follow accu-cheks glycemic control per hospitalists Subjective Date/time seen: 08/12/23 10:27 Interval history: [place] is feeling pretty good right now. No chest pain or shortness of breath. Exam Narrative: WDWN in NAD skin no rash head ncat lungs clear Bilaterally cor reg no rub abd BS+ nontender and soft ext no edema or cyanosis. Objective Data Vital Signs Vital Signs: Vital Signs - 24 hr 08/11/23 12:23 08/11/23 10:30 08/11/23 10:45 Temperature 98.1 F Pulse Rate 94 87 85 Respiratory Rate 16 Blood Pressure 126/74 114/65 123/61 Pulse Oximetry 08/11/23 11:00 08/11/23 11:15 08/11/23 11:30 Temperature Pulse Rate 88 91 96 Respiratory Rate Blood Pressure 140/74 132/74 131/67 Pulse Oximetry 08/11/23 12:00 08/11/23 12:08 08/11/23 14:00 Temperature 98.3 F Pulse Rate 95 89 93 Respiratory Rate 16 Blood Pressure 102/58 L 127/69 102/54 L Pulse Oximetry 100 08/11/23 17:08 08/11/23 12:03 08/11/23 16:01 Temperature Pulse Rate 68 92 92 Respiratory Rate Blood Pressure Pulse Oximetry 08/11/23 21:52 08/11/23 20:30 08/12/23 04:00 Temperature 98.3 F Pulse Rate 60 85 87 Respiratory Rate 14 Blood Pressure 111/51 L Pulse Oximetry 96 08/12/23 05:41 08/12/23 09:26 Temperature 97.7 F Pulse Rate 85 88 Respiratory Rate 12 Blood Pressure 120/60 Pulse Oximetry 97 Intake/Output Intake/Output: Intake & Output 08/09/23 08/10/23 08/11/23 08/12/23 23:59 23:59 23:59 23:59 Intake Total 1590 1790 550 Output Total 1999 Balance 1590 -210 550 Meds/Results Medications: Active Medications Generic Name Dose Route Start Last Admin Trade Name Freq IA
[2023-08-12 11:26] LABS: Glucose Point of Care 253 mg/dl (65-105)
[2023-08-12] MEDS: INSULIN ASPART (*BKC) 100 UNITS/ML SUB-Q (12:27)
--- NOTE | 2023-08-12 16:30 | PM.DS ---
DS: Admitting Diagnosis Discharge Date 08/12/23 Admitting Diagnosis Altered mental status DS: Discharge Diagnosis Discharge Diagnosis (1) Encephalopathy: Code(s): G93.40 - Encephalopathy, unspecified Status: Acute (2) Elevated lactic acid level: Code(s): R79.89 - Other specified abnormal findings of blood chemistry Status: Acute (3) Pneumonia: Qualifiers: Laterality: unspecified laterality Lung location: unspecified part of lung Pneumonia type: due to unspecified organism Qualified Code(s): J18.9 - Pneumonia, unspecified organism Code(s): J18.9 - Pneumonia, unspecified organism Status: Acute (4) Acute UTI: Code(s): N39.0 - Urinary tract infection, site not specified Status: Acute (5) RSV infection: Code(s): B33.8 - Other specified viral diseases Status: Acute (6) Weakness: Code(s): R53.1 - Weakness Status: Acute (7) Anemia, macrocytic: Code(s): D53.9 - Nutritional anemia, unspecified Status: Acute (8) Diabetes mellitus with chronic kidney disease: Code(s): E11.22 - Type 2 diabetes mellitus with diabetic chronic kidney disease Status: Acute (9) Essential hypertension: Code(s): I10 - Essential (primary) hypertension Status: Chronic (10) ESRD (end stage renal disease): Code(s): N18.6 - End stage renal disease Status: Chronic (11) Cognitive communication deficit: Code(s): R41.841 - Cognitive communication deficit Status: Acute (12) Fecal impaction in rectum: Code(s): K56.41 - Fecal impaction Status: Acute DS: Summary Hospital Course Reason for hospitalization: 78yo female with cognitive communication deficit, DM, ESRD and HTN here for altered mental status.?Please see H&P for details. Hospital Course: Patient brought into the ED for altered mental status and weakness. 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 Could explain LUE weakness.?TSH and B12, folate normal. Probably related to infectious etiology with RSV, PNA and UTI. Lactic only mildly elevated. [place] related to infectious etiology and/or ESRD. Repeat level normal. Did not meet criteria for sepsis. CT chest showing inferior right upper lobe airspace disease c/w PNA. She has a cough but no documented fevers or elevated WBC. BCx collected and NGTD. She was started on Rocephin and Azithromycin. UA was consistent with UTI. Rocephin started. UCx growing EColi that was senstive to Rocephin. COVID and influenza negative but was positive for RSV. Probably contributing to her confusion. On room air. She worked with PT/OT. Patient with macrocytic anemia. She appears to have chronic anemia by report probably related to ESRD but unclear on baseline. Hgb 9.8 but dropped to 8 range and remained stable. Iron 56, TIBC 245, 23%. Ferritin 475. Patient also with DM. A1c 5.5. The patient's blood glucose was monitored with AccuCheks covering with sliding scale.? Hypoglycemia protocol was available as needed.?Patient with ESRD relate to DM and HTN. HD . Nephrology consulted and apprecaite their input. Imaging shows fecal impaction.? She was started MiraLax.? Soapsuds enema was refused and Dulcolax suppositories also refused at times. No BM documented but difficult to treat due to refusing care. She has an underlying cognitive communication deficit of unclear significance. Probably related to her old stroke. Unlikely that she aspirated into the right upper lobe given normal anatomy. We added ASA and continued Crestor. Her mental status improved with the above treatment. Discussed with freezer person and all questions answered. She overall did well and was able to be discharged on 08/12/23. Status at Discharge Cognitive/behavioral status at discharge: stable Time Spent with Patient Time attestation: Total time spent providing and/or coordinating discharge services: 35 minutes
[2023-08-12 16:37] LABS: Glucose Point of Care 121 mg/dl (65-105)
[2023-08-12] MEDS: NORTRIPTYLINE HCL 25 MG CAPSULE PO (20:17)
[2023-08-12] MEDS: INSULIN GLARGINE (*BKC) 100 UNITS/ML 10 UNITS SUB-Q (20:17)
[2023-08-12] MEDS: ROSUVASTATIN 5 MG TABLET PO (20:17)
[2023-08-12 21:11] LABS: Glucose Point of Care 202 mg/dl (65-105)
--- NOTE | 2023-08-17 09:31 | PC.NURSE ---
Blood cx are negative. Dr. Anna gonzalez.
== END 2023-08-12 20:40 ==
LOC: ANHED 07:16 → ANH3MEDSUR 14:30
PROVIDERS: Internal Medicine; Internal Medicine Nephrology; Admitting Provider Internal Medicine; Emergency Provider Student in an Organized Health Care Education/Training Program; PCP Otolaryngology; Visit Provider Internal Medicine
DX: J15.9 Unspecified bacterial pneumonia (principal); B97.4 Respiratory syncytial virus as the cause of diseases classified elsewhere; G93.40 Encephalopathy, unspecified; I12.0 Hypertensive chronic kidney disease with stage 5 chronic kidney disease or end stage renal disease; E11.22 Type 2 diabetes mellitus with diabetic chronic kidney disease; N18.6 End stage renal disease; D63.1 Anemia in chronic kidney disease; Z99.2 Dependence on renal dialysis; R41.841 Cognitive communication deficit; E11.43 Type 2 diabetes mellitus with diabetic autonomic (poly)neuropathy; N39.0 Urinary tract infection, site not specified; B33.8 Other specified viral diseases; J32.9 Chronic sinusitis, unspecified; R60.0 Localized edema; Z20.822 Contact with and (suspected) exposure to COVID-19; R94.31 Abnormal electrocardiogram [ECG] [EKG]; K56.41 Fecal impaction; E83.41 Hypermagnesemia; E78.5 Hyperlipidemia, unspecified; K21.9 Gastro-esophageal reflux disease without esophagitis; F32.9 Major depressive disorder, single episode, unspecified; M47.816 Spondylosis without myelopathy or radiculopathy, lumbar region; M47.817 Spondylosis without myelopathy or radiculopathy, lumbosacral region; D35.02 Benign neoplasm of left adrenal gland; F17.210 Nicotine dependence, cigarettes, uncomplicated; Z66 Do not resuscitate; Z79.4 Long term (current) use of insulin; Z79.899 Other long term (current) drug therapy
CPT/HCPCS: 36415; 70450; 71045; 71250; 72131; 74176; 80053; 80069; 80307; 81001; 82140; 82607; 82728; 82746; 82803; 82948; 83036; 83540; 83550; 83605; 83690; 83735; 84100; 84443; 84484; 85025; 85027; 85610; 85730; 86706; 87040; 87077; 87086; 87186; 87340; 87637; 87641; 93005; 93970; 96361; 96365; 96366; 96367; 96372; 96376; 97110; 97161; 97165; 97530; 99285; A9270; G0257; G0378; J0456; J0696; J1650; J1815; J7030; J7040; Q5105

== ENCOUNTER 2023-08-21 08:25 | Observation (INO) | payer MEDICARE, MEDICAID, SELFPAY ==
[2023-08-21] VITALS (29 sets, daily range): BP systolic 119–138; BP diastolic 56–89; PULSE 76–90; RESP 12–18; TEMP 36.4–37.1; O2SAT 94–100
--- NOTE | ~2023-08-21 | MR_ITS ---
MRI of the left ankle Clinical history: Pain Technique: Coronal proton-density and proton-density fat-sat images, axial proton-density and proton- density fat-sat images, and sagittal proton-density and proton-density fat-sat images were acquired. Findings: Syndesmotic ligaments are intact. Anterior and posterior talofibular ligaments, and calcane ofibular ligament are intact. Deltoid ligament is intact. Medial flexor tendons, peroneal tendons, anterior extensor tendons, and Achilles tendon are intact. No osteochondral lesion of the talar dome. Bone marrow signals and joint spaces are intact. No joint effusion. Plantar fascia intact. There is diffuse subcutaneous soft tissue edema. No focal fluid collection ho britton evident. Impression: Diffuse soft tissue edema, nonspecific. No other significant abnormality seen. Reviewed, dictated and finalized at [facility]. CLIPPER Impression: Diffuse soft tissue edema, nonspecific. No other significant abnormality seen.
--- NOTE | ~2023-08-21 | XR_ITS ---
EXAM: XR heel LT min 2V DATE: 08/21/2023 16:18 HISTORY: left heel pain . COMPARISON: None available. FINDINGS: Decreased mineralization. Scattered degenerative changes. Moderate Achilles and plantar en thesopathy. Calcification of the plantar fascia. Thickening of the distal Achilles. No fracture or di slocation. Extensive vascular calcifications. IMPRESSION: No acute osseous finding in the left heel. Achilles thickening which may represent tendin opathy or tear. Reviewed, dictated and finalized at location K. ERCIAL LOAN ASSISTANT IMPRESSION: No acute osseous finding in the left heel. Achilles thickening whic h may represent tendinopathy or tear.
--- NOTE | ~2023-08-21 | CT_ITS ---
EXAMINATION: CT brain wo con DATE: 08/21/2023 10:38 INDICATION: Weakness. TECHNIQUE: Computed tomography (CT) of the head was performed without intravenous contrast. The mA wa s adjusted according to patient size. Iterative reconstruction technique was employed. The dose-lengt h product was 605.33 mGy-cm. COMPARISON: Head CT 08/10/2023 FINDINGS: There are scattered areas of low attenuation in the cerebral white matter. There are old la cunar infarcts in the right basal ganglia. There is no intracranial hemorrhage, acute infarction, or abnormal intracranial mass lesion. The ventricles are normal in size. There are likely changes of ocu lar lens replacement surgeries. There is mild mucosal thickening in the paranasal sinuses. There is a small right mastoid effusion. IMPRESSION: 1. Old lacunar infarcts in the right basal ganglia. 2. Stable moderate nonspecific cerebral white matter disease, which likely represents chronic small v essel ischemic disease. Reviewed, dictated and finalized at location A. TH INFORMATION SPECIALIST IMPRESSION: 1. Old lacunar infarcts in the right basal ganglia. 2. Stable moderate nonspecific cerebral white matter disease, which likely repr esents chronic small vessel ischemic disease.
--- NOTE | ~2023-08-21 | XR_ITS ---
EXAMINATION: XR chest 1V portable INDICATION: Weakness TECHNIQUE: Portable AP chest at 1013 hours COMPARISON: 08/10/2023 FINDINGS: The lungs are free of acute opacities. No pleural effusion or pneumothorax. The cardiomedia stinal silhouette is normal. A left axillary venous stent is noted. IMPRESSION: 1. No acute cardiopulmonary abnormality. Reviewed, dictated and finalized at location B. ARY OPERATOR
--- NOTE | 2023-08-21 08:41 | PC.NURSE ---
Pt to ED with chronic c/o weakness, left leg pain. Unable to assess mobility at this time. Pt able to lift bilateral legs without difficulty. Bilateral feet & ankle edema with callus noted on left heel. Pedal pulse plus 3 with doppler & marked.
--- NOTE | 2023-08-21 08:50 | ED.GENADULT ---
HPI - General Adult General Chief complaint: Weakness Stated complaint: gen weak, L LE pain Time Seen by Provider: 08/21/23 08:29 History of Present Illness HPI narrative: 78-year-old female presenting to the emergency department for evaluation for increased weakness that started today. Patient is on dialysis and gets dialysis on Wednesdays and Fridays. Patient did miss her dialysis this morning due to her presenting to the emergency department. detention was concerned that the patient was more somnolent than normal. Upon arrival to the emergency department patient denies any complaints. Patient was sleeping on arrival but does respond to voice. Patient is alert and oriented. Patient denies any complaints at time of examination. Related Data Home Medications Medication Instructions Recorded Confirmed amlodipine 10 mg tablet 10 mg PO DAILY 08/10/23 08/10/23 calcium acetate(phosphat bind) 667 1,334 mg PO TID 08/10/23 08/10/23 mg capsule docusate sodium 100 mg capsule 100 mg PO BID 08/10/23 08/10/23 (Colace) gabapentin 300 mg capsule 300 mg PO TID 08/10/23 08/10/23 insulin detemir U-100 100 unit/mL 10 unit subcut HS 08/10/23 08/10/23 (3 mL) subcutaneous pen (Levemir FlexPen) nortriptyline 25 mg capsule 25 mg PO HS 08/10/23 08/10/23 rosuvastatin 5 mg tablet 5 mg PO HS 08/10/23 08/10/23 Allergies Allergy/AdvReac Type Severity Reaction Status Date / Time No Known Allergies Allergy Verified 08/10/23 03:27 Review of Systems Review of Systems: All systems reviewed & are unremarkable except as noted in HPI and below PMFSH Past Medical History Medical History (Updated 08/21/23 @ 11:45 by Kiko Rich MD) Anemia, macrocytic Cognitive communication 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 She is listed as a DNR in the nursing notes. Admit date listed as 02/04/23. Sister is listed as responsible democrat. Smoking packs per day: 0.5 Smoking cigarettes per day: 10.0 Years smoked: 58 Smoking pack-years: 29.00 Smoking status: Current every day smoker Tobacco type: cigarettes Second hand tobacco smoke exposure: Yes Alcohol intake: never Substance use: never Do You Feel Safe in your Home?: Yes Lack of Transportation: No Lack of Food: Never True Current Housing: I Have Housing Concerned About Future Housing: No Difficulty Paying Gas/Electric Bills: No Difficulty Paying for Meds: No Currently Unemployed: No Education: Decline to Answer Difficulty w/ Childcare or Family Care: No Spiritual care concerns: No Exam Narrative: APPEARANCE: Tired appearing but alert and oriented HEAD: normocephalic, atraumatic. EYES: PERRLA/EOMI, conjunctivae clear. NOSE: Normal no drainage EARS:TMS clear with good light reflex. THROAT: Pharynx clear, no exudate. NECK: Supple. No adenopathy, no masses. RESPIRATORY: Airway patent, respirations nonlabored. Clear to auscultation bilaterally, no rales, rhonchi, wheezing. CARDIOVASCULAR: Regular rate and rhythm without murmurs rubs or gallops. ABDOMINAL: Soft, nontender, nondistended, normal bowel sounds MUSCULOSKELETAL: Lower extremity edema with intact pulses NEURO: Alert. Cranial nerves II through XII intact. Good gait. Good coordination SKIN: No evidence of cellulitis Course Course Emergency Course: Patien
[2023-08-21 09:13] LABS: Base Excess ABG 5.9 mEq/l (+/-2.0); Carboxyhemoglobin 1.6 % THb (0-2.0); Fractional Inspired Oxygen 21 %; HCO3 ABG 29.8 mEq/l (22.0-26.0); Methemoglobin ABG 0.2 %THb (0-1.5); Oxygen Content ABG 10.1 %vol (16.0-22.0); Oxygen Saturation ABG 91.7 % (95.0-100.0); Oxyhemoglobin 88.2 % THb (90.0-100.0); PCO2 ABG 40.5 mmHg (35.0-45.0); PO2 ABG 57.2 mmHg (80.0-100.0); PO2 FiO2 Ratio Arterial Blood 2.72 %; Total Hemoglobin 8.1 g/dL (12.0-18.0); pH ABG 7.485 (7.350-7.450)
[2023-08-21 09:14] LABS: Device ROOM AIR; Modified Allen's Test Pass; Site Drawn RIGHT RADIAL
[2023-08-21 09:47] LABS: Hematocrit 24.4 % (37.0-47.0); Hemoglobin 7.2 g/dL (12.0-15.0); Mean Corpuscular HGB Conc 29.5 g/dl (32-36); Mean Corpuscular Hemoglobin 30.6 pg (26-34); Mean Corpuscular Volume 103.8 fl (80-100); Mean Platelet Volume 9.6 fl (7.4-10.4); Platelet Count Result 190 k/mm3 (150-375); Red Blood Count 2.35 M/mm3 (4.2-5.4); Red Cell Distribution Width 16.2 % (11.5-14.5); White Blood Count 8.3 K/mm3 (4.5-10.0)
[2023-08-21 09:50] LABS: Alanine Aminotransferase 17 U/L (6-35); Albumin Level 3.5 g/dL (3.5-5.1); Alkaline Phosphatase 110 U/L (38-126); Anion Gap 6 mmol/L (8-16); Aspartate Amino Transferase 27 U/L (14-36); Bilirubin,Total 0.7 mg/dL (0.2-1.3); Blood Urea Nitrogen 59 mg/dL (7-17); Calcium 9.7 mg/dL (8.4-10.2); Carbon Dioxide 33 mmol/L (22-30); Chloride 93 mmol/L (98-107); Estimated CRCL calculation 6 ml/min; Estimated Glomerular Filt Rate 7; Glucose 136 mg/dL (65-110); Potassium 5.4 mmol/L (3.4-5.0); Sodium 132 mmol/L (137-145)
--- NOTE | 2023-08-21 10:12 | PC.NURSE ---
Pt sister at bedside. POC discussed with sister.
[2023-08-21 10:24] LABS: Influenza A QL RT-PCR Negative (Negative); Influenza B QL RT-PCR Negative (Negative); RSV RNA, RT-PCR Negative (Negative); SARS-CoV-2 RNA PCR Negative (Negative)
[2023-08-21 10:38] LABS: Basophils Absolute Manual 0.08 K/mm3 (0.0-0.1); Basophils Percent Manual 1 % (0-1); Eosinophils Absolute Manual 0.33 K/mm3 (0.02-0.5); Eosinophils Percent Manual 4 % (0-4); Hypochromasia 2+ (NORMAL); Lymphocytes Absolute Manual 0.49 K/mm3 (1.1-4.5); Monocytes Absolute Manual 0.49 K/mm3 (0.1-0.90); Monocytes Percent Manual 6 % (3-9); Neutrophils Percent Manual 83 % (46-73); Platelet Estimate Adequate (Adequate); Schistocytes None Seen (NORMAL); Tear Drop Cells 1+ (NORMAL); Total Cells Counted 100
[2023-08-21] MEDS: SODIUM BICARBONATE 8.4% 50 MEQ/50 ML SYRINGE IV PUSH (12:12)
[2023-08-21] MEDS: PANTOPRAZOLE SODIUM IV 40 MG VIAL 80 MG IV PUSH (12:12)
[2023-08-21 13:07] LABS: Appearance Urine Clear (Clear); Bacteria Urine None Seen /hpf; Bilirubin Urine Negative (Negative); Blood Urine Negative (Negative); Color Urine Yellow (Yellow); Glucose Urine UA Trace mg/dL (Negative); Ketones Urine Negative (Negative); Leukocyte Esterase Ur Trace LEU/UL (Negative); Nitrate Urine Negative (Negative); Non Pathogenic Casts 0-2; Protein Urine 2+ mg/dL (Negative); RBC Urine 0-2 /hpf (0-2); Specific Grav Ur 1.008 (1.001-1.035); Squamous Epithelial Cell Urine None seen /hpf (Few); Urobilinogen Urine 0.2 mg/dL (<2.0); WBC Urine 0-5 /hpf; pH Urine 8.5 (5.0-9.0)
[2023-08-21 13:08] LABS: Add Urine Microscopic? YES
[2023-08-21 13:21] LABS: Glucose Point of Care 95 mg/dl (65-105)
[2023-08-21] MEDS: SODIUM CHLORIDE 0.9% IV 250 ML 30 ML IV CONT (14:48)
[2023-08-21] MEDS: TUBING, BLOOD PLUM PUMP TUBING 1 EACH XX (14:49)
[2023-08-21] MEDS: SODIUM ZIRCONIUM CYCLOSILICATE 10 GM POWD.PACK PO (15:14)
--- NOTE | 2023-08-21 15:17 | PM.IMHP ---
H&P: HPI History of Present Illness Date/Time: 08/21/23 15:15 Chief Complaint: Weakness and left leg pain. Narrative: This is a 78-year-old female with end-stage renal disease on hemodialysis, anemia, hypertension, hyperlipidemia, insulin-dependent diabetes, and diabetic peripheral neuropathy who presented to the emergency department via EMS from [facility] for evaluation of weakness and left leg pain. She is not the best historian thus some of the following is supplemented via a review of her electronic medical records. She has chronic pain in her legs due to neuropathy but today it was much worse. The pain is mostly in her left heel and she describes it as sharp and burning in nature. It does radiate somewhat up the back of the leg. It is worse with minimal touch and movement. She has not had any falls or injuries. Reports that the pain is similar but much worse than her usual neuropathy. She does not necessarily think that she is more weak or somnolent than usual but her group home staff report that as well. She has not noticed a change in swelling about her ankles and has not noticed any redness, wounds, or drainage from the left heel. She denies fever, chills, sweats, cold and flu symptoms, chest pain, shortness a breath, nausea, vomiting, diarrhea, and dysuria (she still makes urine). Of note, while in the emergency department she passed a grossly bloody stool which was Hemoccult positive. She had not noticed blood in her stool prior to today and denies epigastric and abdominal pain, bloating, belching, straining to have bowel movements, etc.. In the ED: She was afebrile on arrival with stable blood pressures. Labs were significant for WBC count of 8.3, hemoglobin 7.2, MCV 103.8, sodium 132, potassium 5.4, chloride 93, carbon dioxide 33, BUN 59, creatinine 7.00, glucose 136. Urine was positive for 2+ protein, trace glucose, and trace leukocyte esterase. She tested negative for influenza, RSV, and COVID. Brain CT and chest x-ray were without acute findings. She is being admitted in this setting for further workup. Review of Systems Review of Systems: Twelve systems were reviewed and are negative except for as per HPI. 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 She is listed as a DNR in the nursing notes. Admit date listed as 02/04/23. Sister is listed as responsible democrat. Smoking packs per day: 0.5 Smoking cigarettes per day: 10.0 Years smoked: 52 Smoking pack-years: 26.00 Smoking status: Current every day smoker Tobacco type: cigarettes Second hand tobacco smoke exposure: Yes Alcohol intake: never Substance use: never Do You Feel Safe in your Home?: Yes Lack of Transportation: No Lack of Food: Never True Current Housing: I Have Housing Concerned About Future Housing: No Difficulty Paying Gas/Electric Bills: No Difficulty Paying for Meds: No Currently Unemployed: No Education: High School Diploma/GED Difficulty w/ Childcare or Family Care: No Spiritual care concerns: No Meds Home Medications and Allergies Home Medications Medication Instructions Recorded Confirmed Type amlodipine 10 mg tabl
--- NOTE | 2023-08-21 16:30 | PM.CNNEP ---
Assessment and Plan Assessment and plan (1) ESRD (end stage renal disease): Code(s): N18.6 - End stage renal disease Status: Chronic Assessment and Plan: plan HD tomorrow will eventually transition back to outpatient dialysis schedule of Mon/Mon/Monday follows with Dr. Salinas at [facility] (2) GI bleed: Code(s): K92.2 - Gastrointestinal hemorrhage, unspecified Status: Acute Assessment and Plan: guaiac positive stool in ER noted follow trend of H/H PRBC transfusion per protocol GI consulted (3) Weakness: Code(s): R53.1 - Weakness Status: Acute Assessment and Plan: possibly related to anemia and complicated by peripheral neuropathy PT/OT as tolerated (4) Essential hypertension: Code(s): I10 - Essential (primary) hypertension Status: Chronic Assessment and Plan: reasonable control at this time follow trend of hemodynamics (5) Anemia: Code(s): D64.9 - Anemia, unspecified Status: Chronic Assessment and Plan: due in part to ESRD possibly worsened by #2 Epogen with HD follow H/H (6) Diabetes: Code(s): E11.9 - Type 2 diabetes mellitus without complications Status: Chronic Assessment and Plan: follow accu-cheks glycemic control per hospitalists I will continue follow the patient with you while she remains hospitalized and make further recommendations as deemed necessary. Thank you for allowing me to participate in the care of this patient. History of Present Illness Reason for Consult Consult date: 08/21/23 Reason for consult: end stage renal disease Chief Complaint Chief complaint: GI Bleed/Hyperkalemia/Generalized Weakness/End-Sta History of Present Illness Narrative: The patient is a 78-year-old female with a past medical history as outlined below who presented to [facility] Emergency Room from her nursing facility for further evaluation of generalized weakness and leg pain. Most of the information that I have obtained is from review of the electronic medical record as well as discussion with the ER physician earlier today as is difficult to get a full and complete history from the patient since she is not the best historian. She has known chronic neuropathic pain in her lower extremities but she noted today that it seemed to be much worse. The pain is more localized to her left heel and described as sharp/burning sensation. There is some apparent radiation to the back of her leg. It seemed to be worsened with minimal touch or any type of movement. No reported falls or injuries to report. Her nursing facility felt that she was also more weaker than usual but she does not seem to agree with this assessment. No other systemic symptoms with regard to fevers, chills, nausea, vomiting, diaphoresis, chest pain, shortness of breath, diarrhea or dysuria. Given these constellation of symptoms, EMS was called and she was subsequently transferred to the emergency room for further assessment. Workup and evaluation emergency room demonstrated the patient be hemodynamically stable and in no acute distress. Routine blood test demonstrated a CBC with a normal white blood cell count but with relative anemia with a hemoglobin of 7.2. Her chemistry was significant for a mildly elevated potassium level and labs consistent with her known history of end-stage renal disease. Her urinalysis was significant for 2+ protein trace glucose trace leukocyte esterase. Viral testing with regard to influenza, RSV, and COVID were all negative. CT scan of the brain as well as her chest x-ray were negative for any acute issues/findings. While the patient was in the emergency room, she apparently had a grossly bloody bowel movement which was guaiac positive. She denies any history of hematochezia or melena other than this episode that occurred in the ER. Given her anemia, guaiac-positiv
--- NOTE | 2023-08-21 21:15 | ADMGEN ---
This patient, Mercy Bryson, was admitted to IMU Room 204-01. Patient/family oriented to hospital policies and general routines including ID bracelet, bed and alarms, visiting hours, pain management, procedures, bathroom and other care routines, personal items, smoking policy, room service/diet, and visiting hours. Information on how to activate the Rapid Response Team has been discussed. Patient/Family are encouraged to report perceived risks to care and to ask questions if they do not understand what they are told or what they should do.
[2023-08-21 21:32] LABS: Glucose Point of Care 75 mg/dl (65-105)
[2023-08-21 21:45] LABS: Hemoglobin 9.6 g/dL (12.0-15.0)
[2023-08-21 21:55] LABS: Immature Reticulocyte Fraction 21.7 % (3.0-15.9); Reticulocyte Hemoglobin Conten 30.6 pg (28.2-35.7); Reticulocyte Percent 2.35 % (0.7-4.3); Reticulocytes Absolute 0.07 M/mm3 (0.02-0.1)
[2023-08-21 21:59] LABS: Anion Gap 8 mmol/L (8-16); Blood Urea Nitrogen 60 mg/dL (7-17); Calcium 9.6 mg/dL (8.4-10.2); Carbon Dioxide 31 mmol/L (22-30); Chloride 96 mmol/L (98-107); Estimated CRCL calculation 6 ml/min; Estimated Glomerular Filt Rate 6; Glucose 88 mg/dL (65-110); Sodium 135 mmol/L (137-145)
[2023-08-21 22:06] LABS: Glucose Point of Care 117 mg/dl (65-105)
[2023-08-21 22:26] LABS: Iron 60 ug/dL (37-170)
[2023-08-21 22:35] LABS: Percent Iron Saturation 21 % (20-50)
[2023-08-21 22:59] LABS: Thyroid Stimulating Hormone Reflex 0.963 uIU/mL (0.465-4.68)
[2023-08-21 23:06] LABS: Folic Acid 13.4 ng/mL (2.76->20)
--- NOTE | 2023-08-21 23:24 | PC.NURSE ---
Glucose 75 when pt arrived on IMU. Clear liquids provided to pt per order. Noted wet cough after pt finished liquids. Pt had small amount of hemoptysis. Suction setup at bedside. Initial O2 was 88% on room air, but quickly improved to 95%. Pt states she always has a cough when eating.
[2023-08-21] MEDS: GABAPENTIN 300 MG CAPSULE PO (23:48)
[2023-08-22] VITALS (33 sets, daily range): BP systolic 101–162; BP diastolic 48–85; PULSE 72–96; RESP 16–20; TEMP 36.1–37; O2SAT 90–100
[2023-08-22] MEDS: ACETAMINOPHEN 325 MG TABLET 650 MG PO (01:56)
[2023-08-22 04:51] LABS: Hematocrit 31.4 % (37.0-47.0); Hemoglobin 9.5 g/dL (12.0-15.0); Mean Corpuscular HGB Conc 30.3 g/dl (32-36); Mean Corpuscular Hemoglobin 30.5 pg (26-34); Mean Platelet Volume 9.8 fl (7.4-10.4); Platelet Count Result 190 k/mm3 (150-375); Red Blood Count 3.11 M/mm3 (4.2-5.4); White Blood Count 9.8 K/mm3 (4.5-10.0)
[2023-08-22 05:06] LABS: Anion Gap 8 mmol/L (8-16); Blood Urea Nitrogen 65 mg/dL (7-17); Calcium 9.1 mg/dL (8.4-10.2); Carbon Dioxide 27 mmol/L (22-30); Chloride 98 mmol/L (98-107); Estimated CRCL calculation 6 ml/min; Estimated Glomerular Filt Rate 7; Glucose 95 mg/dL (65-110); Magnesium 3.2 mg/dL (1.6-2.3); Potassium 5.4 mmol/L (3.4-5.0); Sodium 133 mmol/L (137-145)
[2023-08-22 08:19] LABS: Glucose Point of Care 102 mg/dl (65-105)
[2023-08-22 08:34] LABS: Alanine Aminotransferase 16 U/L (6-35); Albumin Level 3.6 g/dL (3.5-5.1); Alkaline Phosphatase 84 U/L (38-126); Aspartate Amino Transferase 36 U/L (14-36)
--- NOTE | 2023-08-22 09:27 | P.PNNP_ITS ---
Progress Note: A&P Assessment and Plan (1) ESRD (end stage renal disease): Code(s): N18.6 - End stage renal disease Status: Chronic Assessment and Plan: * HD today * will eventually transition back to outpatient dialysis schedule of Mon/Mon/Monday * likely plan HD tomorrow to acheive this * follows with Dr. Salinas at [facility] (2) GI bleed: Code(s): K92.2 - Gastrointestinal hemorrhage, unspecified Status: Acute Assessment and Plan: * guaiac positive stool in ER noted * follow trend of H/H * PRBC transfusion per protocol * GI consulted (3) Weakness: Code(s): R53.1 - Weakness Status: Acute Assessment and Plan: * possibly related to anemia and complicated by peripheral neuropathy * PT/OT as tolerated (4) Essential hypertension: Code(s): I10 - Essential (primary) hypertension Status: Chronic Assessment and Plan: * reasonable control at this time * follow trend of hemodynamics (5) Anemia: Code(s): D64.9 - Anemia, unspecified Status: Chronic Assessment and Plan: * due in part to ESRD * possibly worsened by #2 * Epogen with HD * follow H/H (6) Diabetes: Code(s): E11.9 - Type 2 diabetes mellitus without complications Status: Chronic Assessment and Plan: * follow accu-cheks * glycemic control per hospitalists Will continue to follow. Subjective Date/time seen: 08/22/23 09:27 Interval history: Follow-up for end stage renal disease on hemodialysis. Tolerating dialysis treatment at the time of my visit (seen on HD at 9:17AM); no apparent distress voiced; states she feels better since admission; s/p transfusion of 1 unit of PRBCs; no other complaints to report. Exam Narrative: General: elderly but WD/WN female in NAD Heart: normal S1 and S2; no rub Lungs: clear to auscultation Abdomen: soft, nontender, nondistended, positive bowel sounds Extremities: no cyanosis or clubbing; 1+ edema Skin: warm and dry Objective Data Vital Signs Vital Signs: Vital Signs Temp Pulse Resp BP Pulse Ox 08/22/23 09:10 82 132/70 08/22/23 08:54 97.2 F L 82 16 134/76 08/22/23 07:31 97.8 F 78 16 122/55 L 100 08/22/23 06:00 74 08/22/23 04:00 82 08/22/23 04:30 98.4 F 75 18 101/48 L 91 08/22/23 02:00 82 08/22/23 00:00 82 08/21/23 22:00 86 08/21/23 21:16 81 08/21/23 21:16 81 08/21/23 23:24 98.8 F 77 16 119/56 L 94 08/21/23 21:15 97.8 F 83 18 126/62 99 08/21/23 17:05 97.8 F 82 12 136/89 95 08/21/23 18:54 80 12 08/21/23 18:30 80 14 138/73 100 08/21/23 18:29 80 14 100 08/21/23 16:52 82 14 136/89 99 08/21/23 16:30 77 12 08/21/23 14:01 88 12 133/70 100 08/21/23 14:00 86 12 08/21/23 13:48 86 12 100 08/21/23 14:58 97.6 F 81 12 123/65 96 08/21/23 14:42 97.5 F L 81 13 133/70 100 08/21/23 12:45 90 14 98 08/21/23 12:15 86 18 99 08/21/23 12:01 85 15 131/69 08/21/23 12:00 85 13 08/21/23 11:45 82 15 08/21/23 11:30 84 16 08/21/23 11:2
--- NOTE | 2023-08-22 09:27 | PM.PNNEP ---
Progress Note: A&P Assessment and Plan (1) ESRD (end stage renal disease): Code(s): N18.6 - End stage renal disease Status: Chronic Assessment and Plan: HD today will eventually transition back to outpatient dialysis schedule of Mon/Mon/Monday likely plan HD tomorrow to acheive this follows with Dr. Salinas at [facility] (2) GI bleed: Code(s): K92.2 - Gastrointestinal hemorrhage, unspecified Status: Acute Assessment and Plan: guaiac positive stool in ER noted follow trend of H/H PRBC transfusion per protocol GI consulted (3) Weakness: Code(s): R53.1 - Weakness Status: Acute Assessment and Plan: possibly related to anemia and complicated by peripheral neuropathy PT/OT as tolerated (4) Essential hypertension: Code(s): I10 - Essential (primary) hypertension Status: Chronic Assessment and Plan: reasonable control at this time follow trend of hemodynamics (5) Anemia: Code(s): D64.9 - Anemia, unspecified Status: Chronic Assessment and Plan: due in part to ESRD possibly worsened by #2 Epogen with HD follow H/H (6) Diabetes: Code(s): E11.9 - Type 2 diabetes mellitus without complications Status: Chronic Assessment and Plan: follow accu-cheks glycemic control per hospitalists Will continue to follow. Subjective Date/time seen: 08/22/23 09:27 Interval history: Follow-up for end stage renal disease on hemodialysis. Tolerating dialysis treatment at the time of my visit (seen on HD at 9:17AM); no apparent distress voiced; states she feels better since admission; s/p transfusion of 1 unit of PRBCs; no other complaints to report. Exam Narrative: General: elderly but WD/WN female in NAD Heart: normal S1 and S2; no rub Lungs: clear to auscultation Abdomen: soft, nontender, nondistended, positive bowel sounds Extremities: no cyanosis or clubbing; 1+ edema Skin: warm and dry Objective Data Vital Signs Vital Signs: Vital Signs Temp Pulse Resp BP Pulse Ox 08/22/23 09:10 82 132/70 08/22/23 08:54 97.2 F L 82 16 134/76 08/22/23 07:31 97.8 F 78 16 122/55 L 100 08/22/23 06:00 74 08/22/23 04:00 82 08/22/23 04:30 98.4 F 75 18 101/48 L 91 08/22/23 02:00 82 08/22/23 00:00 82 08/21/23 22:00 86 08/21/23 21:16 81 08/21/23 21:16 81 08/21/23 23:24 98.8 F 77 16 119/56 L 94 08/21/23 21:15 97.8 F 83 18 126/62 99 08/21/23 17:05 97.8 F 82 12 136/89 95 08/21/23 18:54 80 12 08/21/23 18:30 80 14 138/73 100 08/21/23 18:29 80 14 100 08/21/23 16:52 82 14 136/89 99 08/21/23 16:30 77 12 08/21/23 14:01 88 12 133/70 100 08/21/23 14:00 86 12 08/21/23 13:48 86 12 100 08/21/23 14:58 97.6 F 81 12 123/65 96 08/21/23 14:42 97.5 F L 81 13 133/70 100 08/21/23 12:45 90 14 98 08/21/23 12:15 86 18 99 08/21/23 12:01 85 15 131/69 08/21/23 12:00 85 13 08/21/23 11:45 82 15 08/21/23 11:30 84 16 08/21/23 11:21 82 16 100 08/21/23 10:56 81 14 100 Intake/Output Intake/Output: Intake & Output 08/19/23 08/20/23 08/21/23 08/22/23 23:59 23:59 23:59 23:59 Intake Total 350 450 Balance 350 450 Meds/Results Medications: Active Medications Generic Name Dose Route Start Last Admin Trade Name Vanessa PRN Reason Stop Dose Admin Acetaminophen 650 mg 08/21/23 21:24 08/22/23 01:56 Acetaminophen 325 Mg Tablet PO 650 mg Q6H PRN Administration Mild Pain (1-3) or Fever Amlodipine Besylate 10 mg 08/22/23 09:00 Amlodipine Besylate 5 Mg Tablet PO DAILY [facility] Calcium Acetate 1,334 mg 08/22/23 09:00 Calcium Acetate 667 Mg Tablet PO TID [facility] Carvedilol 6.25 mg 08/22/23 09:00 Carvedilol 6.25 Mg Tablet PO Q12HR JOHN Dextrose 12.5 gm 07/28
[2023-08-22] MEDS: EPOETIN ALFA-EPBX 10,000 UNITS/ML VIAL 10000 UNITS IV PUSH (10:13)
[2023-08-22 13:37] LABS: Glucose Point of Care 71 mg/dl (65-105)
[2023-08-22] MEDS: amLODIPine BESYLATE 5 MG TABLET 10 MG PO (14:14)
[2023-08-22] MEDS: GABAPENTIN 300 MG CAPSULE PO ×2 (14:14→17:20)
[2023-08-22] MEDS: CALCIUM ACETATE 667 MG TABLET 1334 MG PO ×2 (14:14→17:20)
[2023-08-22] MEDS: carvediloL 6.25 MG TABLET PO ×2 (14:15→20:53)
[2023-08-22 16:31] LABS: Glucose Point of Care 82 mg/dl (65-105)
--- NOTE | 2023-08-22 16:47 | WPDGICN ---
Assessment and Plan Assessment and plan (1) GI bleed: Code(s): K92.2 - Gastrointestinal hemorrhage, unspecified Status: Acute Assessment and Plan: found to have some blood in stools in ER (she is poor historian) she has known chronic anemia from ESRD monitor for more signs of bleeding (2) Rectal bleeding: Code(s): K62.5 - Hemorrhage of anus and rectum Status: Acute Assessment and Plan: egd and colonoscopy tomorrow ? perianal source (3) End-stage renal disease on hemodialysis: Code(s): N18.6 - End stage renal disease; Z99.2 - Dependence on renal dialysis Status: Acute Assessment and Plan: by nephrology (4) Insulin dependent type 2 diabetes mellitus: Code(s): E11.9 - Type 2 diabetes mellitus without complications; Z79.4 - [facility] (current) use of insulin Status: Acute (5) Diabetic peripheral neuropathy: Code(s): E11.42 - Type 2 diabetes mellitus with diabetic polyneuropathy Status: Acute GI Consult Note Consult date/time: 08/22/23 16:47 Reason for consult: fobt, chronic anemia HPI: Mercy Bryson is a 78 year old female with end-stage renal disease on hemodialysis, anemia, hypertension, hyperlipidemia, insulin-dependent diabetes, and diabetic peripheral neuropathy who presented to the emergency department via EMS from [facility] for evaluation of weakness and left leg pain. She is not the best historian and part of history obtained from records. She was sent here after being more somnolent thant usual and also complaining of more leg pain which is chronic based on history. ER physician noted that she passed a grossly bloody stool which was Hemoccult positive and given protonix. Labs were significant for WBC count of 8.3, hemoglobin 7.2, MCV 103.8, sodium 132, potassium 5.4, chloride 93, carbon dioxide 33, BUN 59, creatinine 7.00, glucose 136. She tested negative for influenza, RSV, and COVID. Brain CT and chest x-ray were without acute findings.?She could not tell me whether or not had scopes. Review of Systems Constitutional: Constitutional: Denies chills Eyes: Eyes: Denies blurry vision ENT: Reports Normal hearing present Cardiovascular: Cardiovascular: Denies chest pain Respiratory: Respiratory: Denies cough Gastrointestinal: Gastrointestinal: Denies abdominal pain Genitourinary: Comments: on dialysis, still making some urine Musculoskeletal: Comments: leg pain Integumentary/Breasts: Skin/Breast: Denies rash Neurologic: Denies Abnormal speech present Psychiatric: Psychiatric: Denies behavioral changes [facility] Past Medical History Medical History (Updated 08/22/23 @ 16:51 by Peter Concepcion MD) Anemia, macrocytic Cognitive communication deficit Diabetes mellitus with chronic kidney disease End-stage renal disease on hemodialysis Essential hypertension Gastro-esophageal reflux disease with esophagitis Hx of arterial ischemic stroke Hyperlipidemia Major depressive disorder Other idiopathic peripheral autonomic neuropathy Rectal bleeding Surgical History Surgical History Surgical history unknown Family History Family History Other Family history unknown Social History Social History Social History: Resides at a [facility] in [place]. She is listed as a DNR in the nursing notes. Admit date listed as 02/04/23. Sister is listed as responsible democrat. Smoking packs per day: 0.5 Smoking cigarettes per day: 10.0 Years smoked: 52 Smoking pack-years: 26.00 Smoking status: Current every day smoker Tobacco type: cigarettes Second hand tobacco smoke exposure: Yes Alcohol intake: never Substance use: never Do You Feel Safe in your Home?: Yes Lack of Transportation: No Lack of
[2023-08-22] MEDS: BISACODYL 5 MG TABLET EC 20 MG PO (17:27)
[2023-08-22] MEDS: polyethylene glycoL 3350 238 GM BOTTLE PO (17:32)
--- NOTE | 2023-08-22 18:51 | PM.IMPN ---
Progress Note: A&P Assessment and Plan (1) Rectal bleeding: Code(s): K62.5 - Hemorrhage of anus and rectum Status: Acute Assessment and Plan: -In the emergency department she had a grossly bloody stool which was Hemoccult positive. Her hemoglobin was 7.2 and it came up to 9.5 status post 1 unit PRBC. There has been no further bleeding. She is hemodynamically stable. Tolerated hemodialysis. This is likely the cause of her presenting complaint of weakness. -GI consulted and she is being scheduled for endoscopy/colonoscopy (2) Chronic anemia: Code(s): D64.9 - Anemia, unspecified Status: Acute Assessment and Plan: Continue to monitor. (3) Insulin dependent type 2 diabetes mellitus: Code(s): E11.9 - Type 2 diabetes mellitus without complications; Z79.4 - [facility] (current) use of insulin Status: Acute Assessment and Plan: Continue Accu-Cheks with insulin sliding scale hypoglycemia protocol (4) End-stage renal disease on hemodialysis: Code(s): N18.6 - End stage renal disease; Z99.2 - Dependence on renal dialysis Status: Acute Assessment and Plan: -Dr. Salinas at [facility] is her usual drop board worker. -received dialysis with 1 L taken off on 08/22. Management per Nephrology (5) Diabetic peripheral neuropathy: Code(s): E11.42 - Type 2 diabetes mellitus with diabetic polyneuropathy Status: Acute Assessment and Plan: -Continue gabapentin (6) Pain of left heel: Code(s): M79.672 - Pain in left foot Status: Acute Assessment and Plan: -she has a decubitus pressure sore on the left heel on admission and also has underlying diabetic nephropathy. However she has localized edema of the left heel just at the Achilles tendon insertion. She has pain to palpation and some erythema as well. She denies any falls or injuries. Monk test on the left side is positive although the right side is barely negative due to her chronic atrophy. -PT OT consulted. Weight-bearing of left leg for now -MRI left ankle to assess for Achilles tendinopathy/tear/rupture (7) Hyperkalemia: Code(s): E87.5 - Hyperkalemia Status: Acute Assessment and Plan: -receive dialysis on 08/22. -continue to monitor and manage per Nephrology (8) CVA (cerebral vascular accident): Code(s): I63.9 - Cerebral infarction, unspecified Status: Acute Assessment and Plan: History of. Continue aspirin and statin. No focal deficits however she is globally weak and does not participate with the neuro exam. Plan This is a pleasant 78-year-old female with history of ESRD on hemodialysis Monday her usual drop board worker is Dr. Salinas at [facility], chronic anemia, hypertension, hyperlipidemia, insulin-dependent diabetes, diabetic peripheral neuropathy, GERD, history of CVA depression, chronic debility and deconditioning who resides as a permanent resident of skilled nursing who presents with complaints of weakness and left leg pain. She has chronic pain due to her diabetic neuropathy however she has sharp and burning severe pain in her left ankle tracking up the leg. She denied any falls or injuries. FEN: Diet per GI. Saline lock IV GI prophylaxis: Not indicated DVT prophylaxis: SCDs Lines: Peripheral IV and left arm dialysis access Code Status: DNR Dispo: Stable Subjective Date/time seen: 08/22/23 18:51 Interval history: No acute overnight events. The patient appears very frail and weak. She went to hemodialysis with 1 L taken off without issue. She complains of persistent pain at the left foot. She is adamant she did not hit it or trip or sprain it. She has no other complaints. No report of bloody bowel movements. Review of Systems Review of Systems: All systems reviewed & are unremarkable except as noted in HPI and below (Subjective) Exam Const: General: comfortable a
[2023-08-22 19:58] LABS: Glucose Point of Care 131 mg/dl (65-105)
[2023-08-22] MEDS: NORTRIPTYLINE HCL 25 MG CAPSULE PO (20:53)
[2023-08-22] MEDS: ROSUVASTATIN 5 MG TABLET PO (20:53)
[2023-08-22] MEDS: INSULIN GLARGINE (*BKC) 100 UNITS/ML 10 UNITS SUB-Q (20:53)
[2023-08-23] VITALS (33 sets, daily range): BP systolic 101–154; BP diastolic 50–82; PULSE 70–89; RESP 14–21; TEMP 36.2–37.8; O2SAT 91–100
[2023-08-23] MEDS: MAGNESIUM CITRATE 300 ML BTL PO (03:05)
[2023-08-23 05:18] LABS: Hematocrit 30.3 % (37.0-47.0); Hemoglobin 9.4 g/dL (12.0-15.0); Mean Platelet Volume 9.7 fl (7.4-10.4); Platelet Count Result 190 k/mm3 (150-375); Red Blood Count 3.03 M/mm3 (4.2-5.4); Red Cell Distribution Width 16.5 % (11.5-14.5); White Blood Count 7.1 K/mm3 (4.5-10.0)
[2023-08-23 05:32] LABS: Anion Gap 6 mmol/L (8-16); Blood Urea Nitrogen 32 mg/dL (7-17); Calcium 9.3 mg/dL (8.4-10.2); Carbon Dioxide 28 mmol/L (22-30); Chloride 101 mmol/L (98-107); Estimated CRCL calculation 8 ml/min; Estimated Glomerular Filt Rate 10; Glucose 124 mg/dL (65-110); Magnesium 2.9 mg/dL (1.6-2.3); Sodium 135 mmol/L (137-145)
--- NOTE | 2023-08-23 08:29 | PM.IMPN ---
Progress Note: A&P Assessment and Plan (1) Rectal bleeding: Code(s): K62.5 - Hemorrhage of anus and rectum Status: Acute Assessment and Plan: -In the emergency department she had a grossly bloody stool which was Hemoccult positive. Her hemoglobin was 7.2 and it came up to 9.5 status post 1 unit PRBC. There has been no further bleeding. She is hemodynamically stable. Tolerated hemodialysis. This is likely the cause of her presenting complaint of weakness. -GI consulted and she is being scheduled for endoscopy/colonoscopy 08/23 (2) Chronic anemia: Code(s): D64.9 - Anemia, unspecified Status: Acute Assessment and Plan: Continue to monitor. (3) Insulin dependent type 2 diabetes mellitus: Code(s): E11.9 - Type 2 diabetes mellitus without complications; Z79.4 - [facility] (current) use of insulin Status: Acute Assessment and Plan: Continue Accu-Cheks with insulin sliding scale hypoglycemia protocol Blood glucose reviewed 08/23 (4) End-stage renal disease on hemodialysis: Code(s): N18.6 - End stage renal disease; Z99.2 - Dependence on renal dialysis Status: Acute Assessment and Plan: -Dr. Salinas at [facility] is her usual blind escort. -received dialysis with 1 L taken off on 08/22. Management per Nephrology (5) Diabetic peripheral neuropathy: Code(s): E11.42 - Type 2 diabetes mellitus with diabetic polyneuropathy Status: Acute Assessment and Plan: -Continue gabapentin (6) Pain of left heel: Code(s): M79.672 - Pain in left foot Status: Acute Assessment and Plan: -she has a decubitus pressure sore on the left heel on admission and also has underlying diabetic nephropathy. However she has localized edema of the left heel just at the Achilles tendon insertion. She has pain to palpation and some erythema as well. She denies any falls or injuries. Monk test on the left side is positive although the right side is barely negative due to her chronic atrophy. -PT OT consulted. Weight-bearing of left leg for now -MRI left ankle to assess for Achilles tendinopathy/tear/rupture (7) Hyperkalemia: Code(s): E87.5 - Hyperkalemia Status: Acute Assessment and Plan: -receive dialysis on 08/22. -continue to monitor and manage per Nephrology (8) CVA (cerebral vascular accident): Code(s): I63.9 - Cerebral infarction, unspecified Status: Acute Assessment and Plan: History of. Continue aspirin and statin. No focal deficits however she is globally weak and does not participate with the neuro exam. Plan FEN: Diet per GI. Saline lock IV GI prophylaxis: Not indicated DVT prophylaxis: SCDs Lines: Peripheral IV and left arm dialysis access Code Status: DNR Dispo: Stable Subjective Date/time seen: 08/23/23 08:29 Interval history: 78-year-old female with history of ESRD on hemodialysis Monday her usual blind escort is Dr. Salinas at [facility], chronic anemia, hypertension, hyperlipidemia, insulin-dependent diabetes, diabetic peripheral neuropathy, GERD, history of CVA depression, chronic debility and deconditioning who resides as a permanent resident of assisted who presents with complaints of weakness and left leg pain. She has chronic pain due to her diabetic neuropathy however she has sharp and burning severe pain in her left ankle tracking up the leg. She denied any falls or injuries. No overnight events noted. In EGD/colonoscopy Exam Narrative: Per GI Objective Data Vital Signs Vital Signs: Vital Signs - 24 hr 08/22/23 08:54 08/22/23 09:10 08/22/23 09:30 Temperature 97.2 F L Pulse Rate 82 82 85 Respiratory Rate 16 Blood Pressure 134/76 132/70 145/80 H Pulse Oximetry Oxygen Delivery 08/22/23 09:45 08/22/23 10:00 08/22/23 10:15 Temperature Pulse Ra
[2023-08-23 08:39] LABS: Glucose Point of Care 152 mg/dl (65-105)
[2023-08-23] MEDS: EPOETIN ALFA-EPBX 10,000 UNITS/ML VIAL 10000 UNITS IV PUSH (10:56)
--- NOTE | 2023-08-23 11:00 | PM.PNNEP ---
Progress Note: A&P Assessment and Plan (1) ESRD (end stage renal disease): Code(s): N18.6 - End stage renal disease Status: Chronic Assessment and Plan: short HD treatment today continue outpatient dialysis schedule of Mon/Mon/Monday follows with Dr. Salinas at [facility] (2) GI bleed: Code(s): K92.2 - Gastrointestinal hemorrhage, unspecified Status: Acute Assessment and Plan: guaiac positive stool in ER noted follow trend of H/H PRBC transfusion per protocol GI recommendations noted -- EGD/colonoscopy this afternoon (3) Weakness: Code(s): R53.1 - Weakness Status: Acute Assessment and Plan: possibly related to anemia and complicated by peripheral neuropathy PT/OT as tolerated (4) Essential hypertension: Code(s): I10 - Essential (primary) hypertension Status: Chronic Assessment and Plan: reasonable control at this time follow trend of hemodynamics (5) Anemia: Code(s): D64.9 - Anemia, unspecified Status: Chronic Assessment and Plan: due in part to ESRD possibly worsened by #2 Epogen with HD follow H/H (6) Diabetes: Code(s): E11.9 - Type 2 diabetes mellitus without complications Status: Chronic Assessment and Plan: follow accu-cheks glycemic control per hospitalists Will continue to follow. Subjective Date/time seen: 08/23/23 11:00 Interval history: Follow-up for end stage renal disease on hemodialysis. Tolerating dialysis treatment at the time of my visit (seen on HD at 10:50AM); no new issues or events overnight or earlier today; seen by GI and noted plans for EGD/colonoscopy later today; no apparent distress noted. Exam Narrative: General: elderly but WD/WN female in NAD Heart: normal S1 and S2; no rub Lungs: clear to auscultation Abdomen: soft, nontender, nondistended, positive bowel sounds Extremities: no cyanosis or clubbing; 1+ edema Skin: warm and intact Objective Data Vital Signs Vital Signs: Vital Signs Temp Pulse Resp BP Pulse Ox O2 Del Method 08/23/23 11:00 83 154/72 H 08/23/23 10:00 81 08/23/23 10:00 79 142/68 H 08/23/23 09:45 78 145/72 H 08/23/23 09:15 84 130/70 08/23/23 09:00 88 138/82 08/23/23 08:00 80 18 100 Room Air 08/23/23 08:00 80 08/23/23 10:45 81 138/72 08/23/23 11:13 97.3 F L 85 18 144/76 H 08/23/23 10:30 80 143/72 H 08/23/23 08:18 97.7 F 80 18 129/73 08/23/23 10:15 80 138/70 08/23/23 09:30 78 137/68 08/23/23 08:45 86 148/81 H 08/23/23 08:35 82 138/69 08/23/23 07:34 97.9 F 78 18 115/63 100 08/23/23 06:00 84 08/23/23 04:00 89 18 99 Room Air 08/23/23 04:00 86 08/23/23 02:00 88 08/23/23 03:24 98.6 F 89 18 123/68 99 08/23/23 00:00 75 20 91 Room Air 08/23/23 00:00 74 08/22/23 23:57 97.2 F L 75 20 104/48 L 91 08/22/23 22:00 72 08/22/23 20:00 90 18 90 Room Air 08/22/23 20:00 86 08/22/23 20:04 97.6 F 90 18 118/52 L 90 08/22/23 18:00 89 Intake/Output Intake/Output: Intake & Output 08/20/23 08/21/23 08/22/23 08/23/23 23:59 23:59 23:59 23:59 Intake Total 350 450 0 Output Total 1000 750 Balance 350 -550 -750 Meds/Results Medications: Active Medications Generic Name Dose Route Start Last Admin Trade Name Freq PRN Reason Stop Dose Admin Acetaminophen 650 mg 08/21/23 21:24 08/22/23 01:56 Acetaminophen 325 Mg Tablet PO 650 mg Q6H PRN Administration Mild Pain (1-3) or Fever Amlodipine Besylate 10 mg 08/22/23 09:00 08/23/23 12:00 Amlodipine Besylate 5 Mg Tablet PO 10 mg DAILY JOHN Administration Calcium Acetate 1,334 mg 08/22/23 09:00 08/23/23 12:13 Calcium Acetate 667 Mg Tablet PO Not Given TID [facility] Carvedilol 6.25 mg 08/22/23 09:00
[2023-08-23] MEDS: CALCIUM ACETATE 667 MG TABLET 1334 MG PO ×2 (11:59→17:01)
[2023-08-23] MEDS: carvediloL 6.25 MG TABLET PO ×2 (12:00→20:38)
[2023-08-23] MEDS: amLODIPine BESYLATE 5 MG TABLET 10 MG PO (12:00)
[2023-08-23] MEDS: GABAPENTIN 300 MG CAPSULE PO ×2 (12:01→17:01)
[2023-08-23] MEDS: MAGNESIUM SULF 2 GM/WATER 50ML 2 GM/50 ML BAG IVPB (12:08)
--- NOTE | 2023-08-23 12:28 | PCPTNOTE ---
Attempted PT evaluation, pt getting ready leaving for procedure/testing. Will follow.
[2023-08-23 12:54] LABS: Glucose Point of Care 84 mg/dl (65-105)
[2023-08-23 14:27] LABS: Glucose Point of Care 83 mg/dl (65-105)
[2023-08-23] MEDS: SODIUM CHLORIDE 0.9% IV 500 ML 10 ML IV CONT (14:33)
--- NOTE | 2023-08-23 14:50 | WPDANESEPPF ---
Anes - Initial Pre Proc Eval Procedure: Operation Date: 08/23/23 15:30 Proposed Procedures p Esophagogastroduodenoscopy & Colonoscopy - Peter Concepcion MD Date/Time: 08/23/23 14:50 Surgeon: Rosi Hartman MD Pre Op Diagnosis: GI Bleed/Hyperkalemia/Generalized Weakness/End-Sta Patient Data Age: 78 Gender: F Height: 1.7 m Weight: 71.5 kg Last Vital Signs Temp 36.7 C 08/23/23 14:27 Pulse 82 08/23/23 14:27 Resp 18 08/23/23 14:27 BP 122/54 L 08/23/23 14:27 Pulse Ox 98 08/23/23 14:27 O2 Del Method Room Air 08/23/23 14:27 Allergies Allergy/AdvReac Type Severity Reaction Status Date / Time No Known Allergies Allergy Verified 08/23/23 14:26 Home Medications Medication Instructions Recorded Confirmed Type amlodipine 10 mg tablet 10 mg PO DAILY 08/10/23 08/21/23 History calcium acetate(phosphat bind) 667 1,334 mg PO TID 08/10/23 08/21/23 History mg capsule gabapentin 300 mg capsule 300 mg PO TID 08/10/23 08/21/23 History insulin detemir U-100 100 unit/mL 10 unit subcut HS 08/10/23 08/21/23 History (3 mL) subcutaneous pen (Levemir FlexPen) nortriptyline 25 mg capsule 25 mg PO HS 08/10/23 08/21/23 History rosuvastatin 5 mg tablet 5 mg PO HS 08/10/23 08/21/23 History aspirin 81 mg chewable tablet 81 mg PO DAILY@0800 #30 tabs 08/12/23 08/21/23 Rx (Children's Aspirin) carvedilol 12.5 mg tablet 6.25 mg PO BID #30 tabs 08/12/23 08/21/23 Rx Laboratory Tests 08/22/23 08/22/23 08/23/23 16:26 19:52 04:37 WBC 7.1 K/mm3 (4.5-10.0) RBC 3.03 L M/mm3 (4.2-5.4) Hgb 9.4 L g/dL (12.0-15.0) Hct 30.3 L % (37.0-47.0) MCV 100.0 fl (80-100) MCH 31.0 pg (26-34) MCHC 31.0 L g/dl (32-36) RDW 16.5 H % (11.5-14.5) Plt Count 190 k/mm3 (150-375) MPV 9.7 fl (7.4-10.4) Sodium 135 L mmol/L (137-145) Potassium 4.0 mmol/L (3.4-5.0) Chloride 101 mmol/L (98-107) Carbon Dioxide 28 mmol/L (22-30) Anion Gap 6 L mmol/L (8-16) BUN 32 H D mg/dL (7-17) Creatinine 5.10 H mg/dL (0.7-1.0) Estim Creat Clear Calc 8 ml/min Estimated GFR 10 L (59 - ) Glucose 124 H mg/dL (65-110) POC Capillary Glucose 82 mg/dl 131 H mg/dl (65-105) (65-105) Calcium 9.3 mg/dL (8.4-10.2) Magnesium 2.9 H mg/dL (1.6-2.3) 08/23/23 08/23/23 08/23/23 07:36 12:06 14:24 WBC RBC Hgb Hct MCV MCH MCHC RDW Plt Count MPV Sodium Potassium Chloride Carbon Dioxide Anion Gap BUN Creatinine Estim Creat Clear Calc Estimated GFR Glucose POC Capillary Glucose 152 H mg/dl 84 mg/dl 83 mg/dl (65-105) (65-105) (65-105) Calcium Magnesium Patient hx anesthesia problems: none Family hx anesthesia problems: none Results Review: All pre-operative results and documents have been reviewed as part of the pre-operative evaluation. [facility] Past Medical History Medical History Anemia, macrocytic Cognitive communication deficit Diabetes mellitus with chronic kidney disease End-stage renal disease on hemodialysis Essential hypertension Gastro-esophageal reflux disease with esophagitis Hx of arterial ischemic stroke Hyperlipidemia Major depressive disorder Other idiopathic peripheral autonomic neuropathy Rectal bleeding Surgical History Surgical History Surgical history unknown Family History Family History Other Family hist
--- NOTE | 2023-08-23 15:48 | SUR.OPER ---
egd ended at 1538 and colon was started at 1545.
[2023-08-23 16:25] LABS: Glucose Point of Care 92 mg/dl (65-105)
--- NOTE | 2023-08-23 18:34 | PC.NURSE ---
This patient, Mercy Bryson, was transferred to [ [id number]] on 08/23/23 at 1835. Personal belongings sent with patient. Report given to [ RN]. Appropriate documentation sent with patient.
[2023-08-23] MEDS: ACETAMINOPHEN 325 MG TABLET 650 MG PO (20:36)
[2023-08-23] MEDS: ROSUVASTATIN 5 MG TABLET PO (20:37)
[2023-08-23] MEDS: PANTOPRAZOLE 40 MG TABLET PO (20:37)
[2023-08-23] MEDS: INSULIN GLARGINE (*BKC) 100 UNITS/ML 10 UNITS SUB-Q (20:43)
[2023-08-23 21:02] LABS: Glucose Point of Care 137 mg/dl (65-105)
[2023-08-23] MEDS: NORTRIPTYLINE HCL 25 MG CAPSULE PO (21:44)
[2023-08-24 05:28] VITALS: BP 134/71; PULSE 80; RESP 16; TEMP 36.6; O2SAT 99
[2023-08-24 06:17] LABS: Basophils Percent Auto 0.7 % (0.2-1.2); Eosinophils Absolute Auto 0.3 K/mm3 (0-0.3); Eosinophils Percent Auto 4.1 % (0-4.4); Hematocrit 30.4 % (37.0-47.0); Hemoglobin 9.4 g/dL (12.0-15.0); Immature Granulocyte Absolute 0.05 K/mm3 (0.00-0.031); Immature Granulocyte Percent A 0.8 % (0-0.5); Lymphocytes Absolute Auto 0.76 K/mm3 (0.9-3.2); Lymphocytes Percent Auto 12.4 % (18.3-44.2); Mean Corpuscular HGB Conc 30.9 g/dl (32-36); Mean Corpuscular Hemoglobin 30.5 pg (26-34); Mean Corpuscular Volume 98.7 fl (80-100); Mean Platelet Volume 9.4 fl (7.4-10.4); Monocytes Absolute Auto 0.6 K/mm3 (0.1-0.6); Monocytes Percent Auto 9.2 % (2.6-8.5); Neutrophils Absolute Auto 4.5 K/mm3 (1.3-6.7); Neutrophils Percent Auto 72.8 % (45.5-73.1); Platelet Count Result 181 k/mm3 (150-375); Red Blood Count 3.08 M/mm3 (4.2-5.4); Red Cell Distribution Width 15.9 % (11.5-14.5); White Blood Count 6.1 K/mm3 (4.5-10.0)
[2023-08-24 06:29] LABS: Alanine Aminotransferase 12 U/L (6-35); Albumin Level 3.5 g/dL (3.5-5.1); Alkaline Phosphatase 89 U/L (38-126); Anion Gap 4 mmol/L (8-16); Aspartate Amino Transferase 24 U/L (14-36); Bilirubin,Total 0.8 mg/dL (0.2-1.3); Blood Urea Nitrogen 23 mg/dL (7-17); Calcium 9.2 mg/dL (8.4-10.2); Carbon Dioxide 28 mmol/L (22-30); Chloride 102 mmol/L (98-107); Estimated CRCL calculation 9 ml/min; Estimated Glomerular Filt Rate 11; Glucose 102 mg/dL (65-110); Magnesium 3.5 mg/dL (1.6-2.3); Potassium 4.3 mmol/L (3.4-5.0); Sodium 134 mmol/L (137-145)
[2023-08-24] MEDS: CALCIUM ACETATE 667 MG TABLET 1334 MG PO ×3 (08:45→17:14)
[2023-08-24] MEDS: PANTOPRAZOLE 40 MG TABLET PO ×2 (08:45→20:07)
[2023-08-24] MEDS: GABAPENTIN 300 MG CAPSULE PO ×3 (08:45→17:13)
[2023-08-24] MEDS: amLODIPine BESYLATE 5 MG TABLET 10 MG PO (08:45)
[2023-08-24] MEDS: ACETAMINOPHEN 325 MG TABLET 650 MG PO (08:46)
[2023-08-24 08:49] VITALS: PULSE 73
[2023-08-24] MEDS: carvediloL 6.25 MG TABLET PO ×2 (08:49→20:07)
[2023-08-24 09:03] LABS: Glucose Point of Care 129 mg/dl (65-105)
[2023-08-24 09:13] VITALS: O2SAT 96
[2023-08-24 12:05] LABS: Glucose Point of Care 277 mg/dl (65-105)
[2023-08-24] MEDS: INSULIN ASPART (*BKC) 100 UNITS/ML SUB-Q (13:53)
[2023-08-24 14:00] VITALS: BP 97/51; PULSE 63; RESP 16; TEMP 36.6; O2SAT 100
--- NOTE | 2023-08-24 14:01 | PM.PNNEP ---
Progress Note: A&P Assessment and Plan (1) ESRD (end stage renal disease): Code(s): N18.6 - End stage renal disease Status: Chronic Assessment and Plan: HD tomorrow continue outpatient dialysis schedule of Mon/Mon/Monday follows with Dr. Salinas at [facility] (2) GI bleed: Code(s): K92.2 - Gastrointestinal hemorrhage, unspecified Status: Acute Assessment and Plan: guaiac positive stool in ER noted follow trend of H/H PRBC transfusion per protocol GI recommendations noted EGD/colonoscopy results noted (3) Weakness: Code(s): R53.1 - Weakness Status: Acute Assessment and Plan: possibly related to anemia and complicated by peripheral neuropathy PT/OT as tolerated (4) Essential hypertension: Code(s): I10 - Essential (primary) hypertension Status: Chronic Assessment and Plan: reasonable control at this time follow trend of hemodynamics (5) Anemia: Code(s): D64.9 - Anemia, unspecified Status: Chronic Assessment and Plan: due in part to ESRD possibly worsened by #2 Epogen with HD follow H/H (6) Diabetes: Code(s): E11.9 - Type 2 diabetes mellitus without complications Status: Chronic Assessment and Plan: follow accu-cheks glycemic control per hospitalists Will continue to follow. Subjective Date/time seen: 08/24/23 14:01 Interval history: Follow-up for end stage renal disease on hemodialysis. Tolerated short dialysis treatment as well as EGD + colonoscopy yesterday without any issues or problems; she otherwise feels reasonably well today; no issues/events overnight or earlier today; no apparent distress voiced on my visit with her today. Exam Narrative: General: elderly but WD/WN female in NAD Heart: normal S1 and S2; no rub Lungs: clear to auscultation Abdomen: soft, nontender, nondistended, positive bowel sounds Extremities: no cyanosis or clubbing; 1+ edema Skin: no rash or nodules Objective Data Vital Signs Vital Signs: Vital Signs Temp Pulse Resp BP Pulse Ox O2 Del Method 08/24/23 14:00 97.9 F 63 16 97/51 L 100 08/24/23 10:30 Room Air 08/24/23 09:28 Room Air 08/24/23 09:13 96 Room Air 08/24/23 08:00 Room Air 08/24/23 08:49 73 08/24/23 05:28 97.9 F 80 16 134/71 99 08/23/23 20:53 98.6 F 72 14 133/72 98 08/23/23 20:38 70 Intake/Output Intake/Output: Intake & Output 08/21/23 08/22/23 08/23/23 08/24/23 23:59 23:59 23:59 23:59 Intake Total 350 519 840 8141 Output Total 1000 750 Balance 350 -674 -583 1495 Meds/Results Medications: Active Medications Generic Name Dose Route Start Last Admin Trade Name Freq PRN Reason Stop Dose Admin Acetaminophen 650 mg 08/21/23 21:24 08/24/23 08:46 Acetaminophen 325 Mg Tablet PO 650 mg Q6H PRN Administration Mild Pain (1-3) or Fever Amlodipine Besylate 10 mg 08/22/23 09:00 08/24/23 08:45 Amlodipine Besylate 5 Mg Tablet PO 10 mg DAILY JOHN Administration Calcium Acetate 1,334 mg 08/22/23 09:00 08/24/23 17:14 Calcium Acetate 667 Mg Tablet PO 1,334 mg TID JOHN Administration Carvedilol 6.25 mg 08/22/23 09:00 08/24/23 08:49 Carvedilol 6.25 Mg Tablet PO 6.25 mg Q12HR JOHN Administration Dextrose 12.5 gm 08/21/23 21:24 Dextrose 50% 25 Gm/50 Ml Syringe IV PUSH PRN PRN Hypoglycemia Protocol Gabapentin 300 mg 08/21/23 21:30 08/24/23 17:13 Gabapentin 300 Mg Capsule PO 300 mg TID JOHN Administration Glucagon 1 mg 08/21/23 21:24 Glucagon For Inj 1 Mg Vial IM PRN PRN Hypoglycemia Protocol Glucose 15 gm 08/21/23 21:24 Glucose Oral Gel 15 Gm Of Glucse In 37.5 Gm Tube PO PRN PRN Hypoglycemia Protocol Dextrose 1,000 mls @ 100 mls/hr 08/21/23 21:24 Dextrose 5% 1,000 Ml IVPB PRN PRN
--- NOTE | 2023-08-24 14:01 | P.PNNP_ITS ---
Progress Note: A&P Assessment and Plan (1) ESRD (end stage renal disease): Code(s): N18.6 - End stage renal disease Status: Chronic Assessment and Plan: * HD tomorrow * continue outpatient dialysis schedule of Mon/Mon/Monday * follows with Dr. Salinas at [facility] (2) GI bleed: Code(s): K92.2 - Gastrointestinal hemorrhage, unspecified Status: Acute Assessment and Plan: * guaiac positive stool in ER noted * follow trend of H/H * PRBC transfusion per protocol * GI recommendations noted * EGD/colonoscopy results noted (3) Weakness: Code(s): R53.1 - Weakness Status: Acute Assessment and Plan: * possibly related to anemia and complicated by peripheral neuropathy * PT/OT as tolerated (4) Essential hypertension: Code(s): I10 - Essential (primary) hypertension Status: Chronic Assessment and Plan: * reasonable control at this time * follow trend of hemodynamics (5) Anemia: Code(s): D64.9 - Anemia, unspecified Status: Chronic Assessment and Plan: * due in part to ESRD * possibly worsened by #2 * Epogen with HD * follow H/H (6) Diabetes: Code(s): E11.9 - Type 2 diabetes mellitus without complications Status: Chronic Assessment and Plan: * follow accu-cheks * glycemic control per hospitalists Will continue to follow. Subjective Date/time seen: 08/24/23 14:01 Interval history: Follow-up for end stage renal disease on hemodialysis. Tolerated short dialysis treatment as well as EGD + colonoscopy yesterday without any issues or problems; she otherwise feels reasonably well today; no issues/events overnight or earlier today; no apparent distress voiced on my visit with her today. Exam Narrative: General: elderly but WD/WN female in NAD Heart: normal S1 and S2; no rub Lungs: clear to auscultation Abdomen: soft, nontender, nondistended, positive bowel sounds Extremities: no cyanosis or clubbing; 1+ edema Skin: no rash or nodules Objective Data Vital Signs Vital Signs: Vital Signs Temp Pulse Resp BP Pulse Ox O2 Del Method 08/24/23 14:00 97.9 F 63 16 97/51 L 100 08/24/23 10:30 Room Air 08/24/23 09:28 Room Air 08/24/23 09:13 96 Room Air 08/24/23 08:00 Room Air 08/24/23 08:49 73 08/24/23 05:28 97.9 F 80 16 134/71 99 08/23/23 20:53 98.6 F 72 14 133/72 98 08/23/23 20:38 70 Intake/Output Intake/Output: Intake & Output 08/21/23 08/22/23 08/23/23 08/24/23 23:59 23:59 23:59 23:59 Intake Total 350 893 672 4081 Output Total 1000 750 Balance 350 550 270 1495 Meds/Results Medications: Active Medications Generic Name Dose Route Start Last Admin Trade Name Freq PRN Reason Stop Dose Admin Acetaminophen 650 mg 08/21/23 21:24 08/24/23 08:46 Acetaminophen 325 Mg Tablet PO 650 mg Q6H PRN Administration Mild Pain (1-3) or Fever Amlodipine Besylate 10 mg 08/22/23 09:00 08/24/23 08:45 Amlodipine Besylate 5 Mg Tablet PO 10 mg DAILY JOHN Administration
--- NOTE | 2023-08-24 15:05 | PM.DS ---
DS: Admitting Diagnosis Discharge Date 08/24/23 Admitting Diagnosis weakness DS: Discharge Diagnosis Discharge Diagnosis (1) Rectal bleeding: Code(s): K62.5 - Hemorrhage of anus and rectum Status: Resolved Assessment and Plan: GI consulted - endoscopy/colonoscopy 08/23 internal hemorrhoids noted, but no active bleeding EGD showed gastritis, small non-bleeding ulcer will stop aspirin until further follow up with PCP (2) Chronic anemia: Code(s): D64.9 - Anemia, unspecified Status: Chronic Assessment and Plan: stable (3) Insulin dependent type 2 diabetes mellitus: Code(s): E11.9 - Type 2 diabetes mellitus without complications; Z79.4 - joint terminal attack controller (current) use of insulin Status: Chronic (4) End-stage renal disease on hemodialysis: Code(s): N18.6 - End stage renal disease; Z99.2 - Dependence on renal dialysis Status: Chronic Assessment and Plan: -Dr. Salinas at [facility] is her usual union laborer. -continue M/W/F dialysis schedule (5) Diabetic peripheral neuropathy: Code(s): E11.42 - Type 2 diabetes mellitus with diabetic polyneuropathy Status: Chronic Assessment and Plan: -Continue gabapentin (6) Pain of left heel: Code(s): M79.672 - Pain in left foot Status: Acute Assessment and Plan: -PT OT consulted. Weight-bearing of left leg for now -MRI left ankle to negative for injury/tear (7) Hyperkalemia: Code(s): E87.5 - Hyperkalemia Status: Acute Assessment and Plan: -receive dialysis on 08/22. -continue to monitor and manage per Nephrology (8) CVA (cerebral vascular accident): Code(s): I63.9 - Cerebral infarction, unspecified Status: Acute Assessment and Plan: History of. Continue statin, holding aspirin for now. Plan FEN: Diet per GI. Saline lock IV GI prophylaxis: Not indicated DVT prophylaxis: SCDs Lines: Peripheral IV and left arm dialysis access Code Status: DNR Dispo: Stable DS: Summary Hospital Course Hospital Course: Patient is a 78 YO female with end-stage renal disease on hemodialysis, anemia, hypertension, hyperlipidemia, insulin-dependent diabetes, and diabetic peripheral neuropathy admitted from [facility] for evaluation of weakness and left leg pain. She has chronic pain in her legs due to neuropathy. She has not had any falls or injuries. Reports that the pain is similar but much worse than her usual neuropathy. While in the emergency department, she passed a grossly bloody stool which was Hemoccult positive. She had not noticed blood in her stool prior and denies epigastric and abdominal pain, bloating, belching, straining to have bowel movements. GI consulted and colonoscopy and EGD done yesterday. Imaging showed internal hemorrhoids, small non-bleeding ulcer. Stable for d/c per GI. Patient has not had recurrent episodes since admission. MRI of ankle showed no signs of injury or tear. Status at Discharge Functional status at discharge: uses cane/walker Overall status at discharge: patient is back to baseline Time Spent with Patient Time attestation: Total time spent providing and/or coordinating discharge services: Exam Narrative: General: Well-developed, well-nourished, chronically ill-appearing in no acute distress. HEENT: PERRL, EOMI. Neck: Supple. No JVD. Respiratory: Lungs clear to auscultation. Cardiovascular: RRR Gastrointestinal: Abdomen is soft, nontender, and nondistended with positive bowel sounds. Skin: Warm and dry. Left heel is boggy with slight hyperpigmentation Extremities: No cyanosis or clubbing. Bilateral lower extremity edema, left greater than right. Left upper extremity fistula with palpable thrill and bruit. Neurological:She is oriented to name and date of . Cranial nerves 2-12 are grossly intact. Psychiatric: Pleasant and cooperative.
--- NOTE | 2023-08-24 15:35 | WPDGIPROGNO ---
Progress Note: A&P Assessment and Plan (1) Erosive gastritis: Code(s): K29.60 - Other gastritis without bleeding Status: Acute Assessment and Plan: no signs of bleeding colonoscopy unremarkable she can go with ppi daily (2) Rectal bleeding: Code(s): K62.5 - Hemorrhage of anus and rectum Status: Resolved Assessment and Plan: colonoscopy unremarkable (3) Insulin dependent type 2 diabetes mellitus: Code(s): E11.9 - Type 2 diabetes mellitus without complications; Z79.4 - buttermaker helper (current) use of insulin Status: Chronic (4) End-stage renal disease on hemodialysis: Code(s): N18.6 - End stage renal disease; Z99.2 - Dependence on renal dialysis Status: Chronic Assessment and Plan: will follow up with nephrology Subjective Date/time seen: 08/24/23 15:35 Interval history: doing well, tolerated diet she would like to leave hospital she is on good spirits Review of Systems Review of Systems: All systems reviewed & are unremarkable except as noted in HPI and below Exam Narrative: General: Well-developed, well-nourished, chronically ill-appearing in no acute distress. HEENT: PERRL, EOMI. Neck: Supple. No JVD. Respiratory: Lungs clear to auscultation. Cardiovascular: RRR Gastrointestinal: Abdomen is soft, nontender, and nondistended with positive bowel sounds. Skin: Warm and dry. Left heel is boggy with slight hyperpigmentation Extremities: No cyanosis or clubbing. Bilateral lower extremity edema, left greater than right. Left upper extremity fistula with palpable thrill and bruit. Neurological:She is oriented to name and date of . Cranial nerves 2-12 are grossly intact. Psychiatric: Pleasant and cooperative. Objective Data Vital Signs Vital Signs: Vital Signs - 24 hr 08/23/23 16:00 08/23/23 16:10 08/23/23 16:20 Temperature Pulse Rate 75 76 77 Respiratory Rate 21 H 21 H 20 Blood Pressure 101/50 L 108/50 L 111/50 L Pulse Oximetry 100 98 98 Oxygen Delivery Room Air Room Air Room Air 08/23/23 17:00 08/23/23 17:00 08/23/23 17:18 Temperature 97.9 F Pulse Rate 84 84 85 Respiratory Rate 20 20 Blood Pressure 136/64 Pulse Oximetry 98 Oxygen Delivery Room Air 08/23/23 20:38 08/23/23 20:53 08/24/23 05:28 Temperature 98.6 F 97.9 F Pulse Rate 70 72 80 Respiratory Rate 14 16 Blood Pressure 133/72 134/71 Pulse Oximetry 98 99 Oxygen Delivery 08/24/23 08:49 08/24/23 08:00 08/24/23 09:13 Temperature Pulse Rate 73 Respiratory Rate Blood Pressure Pulse Oximetry 96 Oxygen Delivery Room Air Room Air 08/24/23 09:28 08/24/23 10:30 08/24/23 14:00 Temperature 97.9 F Pulse Rate 63 Respiratory Rate 16 Blood Pressure 97/51 L Pulse Oximetry 100 Oxygen Delivery Room Air Room Air Intake/Output Intake/Output: Intake & Output 08/21/23 08/22/23 08/23/23 08/24/23 23:59 23:59 23:59 23:59 Intake Total 350 450 480 705 Output Total 1000 750 Balance 350 -550 -270 705 Meds/Results Medications: Active Medications Generic Name Dose Route Start Last Admin Trade Name Freq PRN Reason Stop Dose Admin Acetaminophen 650 mg 08/21/23 21:24 08/24/23 08:46 Acetaminophen 325 Mg Tablet PO 650 mg Q6H PRN Administration Mild Pain (1-3) or Fever Amlodipine Besylate 10 mg 08/22/23 09:00 08/24/23 08:45 Amlodipine Besylate 5 Mg Tablet PO 10 mg DAILY JOHN Administration Calcium Acetate 1,334 mg 08/22/23 09:00 08/24/23 13:51 Calcium Acetate 667 Mg Tablet PO 1,334 mg TID JOHN Administration Carvedilol 6.25 mg 08/22/23 09:00 08/24/23 08:49 Carvedilol 6.25 Mg Tablet PO 6.25 mg Q12HR JOHN Administration Dextrose 12.5 gm 08/21/23 21:24 Dextrose 50% 25 Gm/50 Ml Syringe IV PUSH PRN PRN Hypoglycemia Protocol Gabapentin 300 mg 08/21/23 21:30 08/24/23 13:51 Gabapentin 300 Mg Capsule PO 300 mg TID JOHN Administrati
[2023-08-24 17:11] LABS: Glucose Point of Care 162 mg/dl (65-105)
[2023-08-24 20:07] VITALS: PULSE 75
[2023-08-24] MEDS: NORTRIPTYLINE HCL 25 MG CAPSULE PO (20:07)
[2023-08-24] MEDS: ROSUVASTATIN 5 MG TABLET PO (20:07)
[2023-08-24] MEDS: INSULIN GLARGINE (*BKC) 100 UNITS/ML 10 UNITS SUB-Q (20:10)
[2023-08-24 20:11] LABS: Glucose Point of Care 156 mg/dl (65-105)
[2023-08-24 20:49] VITALS: BP 119/54; PULSE 75; RESP 20; TEMP 36.2; O2SAT 100
[2023-08-25] VITALS (16 sets, daily range): BP systolic 126–169; BP diastolic 37–78; PULSE 66–89; RESP 18–20; TEMP 36.3–37; O2SAT 98
[2023-08-25] MEDS: ACETAMINOPHEN 325 MG TABLET 650 MG PO ×2 (05:35→13:36)
[2023-08-25 06:02] LABS: Basophils Percent Auto 0.5 % (0.2-1.2); Eosinophils Absolute Auto 0.3 K/mm3 (0-0.3); Eosinophils Percent Auto 4.7 % (0-4.4); Hematocrit 28.1 % (37.0-47.0); Hemoglobin 8.7 g/dL (12.0-15.0); Immature Granulocyte Absolute 0.06 K/mm3 (0.00-0.031); Immature Granulocyte Percent A 0.9 % (0-0.5); Lymphocytes Absolute Auto 0.77 K/mm3 (0.9-3.2); Lymphocytes Percent Auto 11.8 % (18.3-44.2); Mean Corpuscular Hemoglobin 30.5 pg (26-34); Mean Corpuscular Volume 98.6 fl (80-100); Mean Platelet Volume 9.7 fl (7.4-10.4); Monocytes Absolute Auto 0.6 K/mm3 (0.1-0.6); Monocytes Percent Auto 9.5 % (2.6-8.5); Neutrophils Absolute Auto 4.8 K/mm3 (1.3-6.7); Neutrophils Percent Auto 72.6 % (45.5-73.1); Nucleated Red Blood Cells Perc 0.5 % (0.0-0.2); Platelet Count Result 192 k/mm3 (150-375); Red Blood Count 2.85 M/mm3 (4.2-5.4); Red Cell Distribution Width 15.5 % (11.5-14.5); White Blood Count 6.6 K/mm3 (4.5-10.0)
[2023-08-25 06:30] LABS: Alanine Aminotransferase 12 U/L (6-35); Albumin Level 3.4 g/dL (3.5-5.1); Alkaline Phosphatase 90 U/L (38-126); Anion Gap 7 mmol/L (8-16); Aspartate Amino Transferase 24 U/L (14-36); Bilirubin,Total 0.7 mg/dL (0.2-1.3); Blood Urea Nitrogen 34 mg/dL (7-17); Calcium 8.9 mg/dL (8.4-10.2); Carbon Dioxide 25 mmol/L (22-30); Chloride 99 mmol/L (98-107); Estimated CRCL calculation 7 ml/min; Estimated Glomerular Filt Rate 8; Glucose 134 mg/dL (65-110); Potassium 4.5 mmol/L (3.4-5.0); Sodium 131 mmol/L (137-145)
[2023-08-25 07:50] LABS: Glucose Point of Care 120 mg/dl (65-105)
--- NOTE | 2023-08-25 09:20 | PM.PNNEP ---
Progress Note: A&P Assessment and Plan (1) ESRD (end stage renal disease): Code(s): N18.6 - End stage renal disease Status: Chronic Assessment and Plan: HD today continue outpatient dialysis schedule of Mon/Mon/Monday follows with Dr. Salinas at [facility] (2) GI bleed: Code(s): K92.2 - Gastrointestinal hemorrhage, unspecified Status: Acute Assessment and Plan: guaiac positive stool in ER noted follow trend of H/H PRBC transfusion per protocol GI recommendations noted EGD/colonoscopy results noted (3) Weakness: Code(s): R53.1 - Weakness Status: Acute Assessment and Plan: possibly related to anemia and complicated by peripheral neuropathy PT/OT as tolerated (4) Essential hypertension: Code(s): I10 - Essential (primary) hypertension Status: Chronic Assessment and Plan: reasonable control at this time follow trend of hemodynamics (5) Anemia: Code(s): D64.9 - Anemia, unspecified Status: Chronic Assessment and Plan: due in part to ESRD possibly worsened by #2 Epogen with HD follow H/H (6) Diabetes: Code(s): E11.9 - Type 2 diabetes mellitus without complications Status: Chronic Assessment and Plan: follow accu-cheks glycemic control per hospitalists Not opposed to discharge from renal perspective if otherwise medically stable. Will continue to follow. Subjective Date/time seen: 08/25/23 09:20 Interval history: Follow-up for end stage renal disease on hemodialysis. Tolerating dialysis treatment at the time of my visit (seen on HD at 9:10AM); no apparent issues or problems voiced at this time -- resting comfortably while on dialysis; no events overnight or earlier today; no distress noted. Exam Narrative: General: elderly but WD/WN female in NAD Heart: normal S1 and S2; no rub Lungs: clear to auscultation Abdomen: soft, nontender, nondistended, positive bowel sounds Extremities: no cyanosis or clubbing; 1+ edema Skin: warm and dry Objective Data Vital Signs Vital Signs: Vital Signs Temp Pulse Resp BP Pulse Ox O2 Del Method 08/25/23 09:15 83 154/53 H 08/25/23 09:00 86 129/54 L 08/25/23 08:45 76 145/70 H 08/25/23 08:27 79 146/70 H 08/25/23 08:18 97.3 F L 78 18 138/61 08/25/23 08:00 Room Air 08/25/23 05:32 98.0 F 81 20 126/61 98 08/24/23 20:49 97.2 F L 75 20 119/54 L 100 08/24/23 20:00 Room Air 08/24/23 20:07 75 08/24/23 14:00 97.9 F 63 16 97/51 L 100 08/24/23 10:30 Room Air Intake/Output Intake/Output: Intake & Output 08/22/23 08/23/23 08/24/23 08/25/23 23:59 23:59 23:59 23:59 Intake Total 574 869 0551 100 Output Total 1000 750 Balance -550 -270 1495 100 Meds/Results Medications: Active Medications Generic Name Dose Route Start Last Admin Trade Name Freq PRN Reason Stop Dose Admin Acetaminophen 650 mg 08/21/23 21:24 08/25/23 05:35 Acetaminophen 325 Mg Tablet PO 650 mg Q6H PRN Administration Mild Pain (1-3) or Fever Amlodipine Besylate 10 mg 08/22/23 09:00 08/24/23 08:45 Amlodipine Besylate 5 Mg Tablet PO 10 mg DAILY JOHN Administration Calcium Acetate 1,334 mg 08/22/23 09:00 08/24/23 17:14 Calcium Acetate 667 Mg Tablet PO 1,334 mg TID JOHN Administration Carvedilol 6.25 mg 08/22/23 09:00 08/24/23 20:07 Carvedilol 6.25 Mg Tablet PO 6.25 mg Q12HR JOHN Administration Dextrose 12.5 gm 08/21/23 21:24 Dextrose 50% 25 Gm/50 Ml Syringe IV PUSH PRN PRN Hypoglycemia Protocol Epoetin Deion-epbx 10,000 units 08/25/23 20:00 Epoetin Deion-Epbx 10,000 Units/Ml Vial IV PUSH 08/25/23 20:01 ONCE ONE Gabapentin 300 mg 08/21/23 21:30 08/24/23 17:13 Gabapentin 300 Mg Capsule PO 300 mg TID JOHN Administration Glucagon 1 mg 08/21/23 21:24
--- NOTE | 2023-08-25 09:20 | P.PNNP_ITS ---
Progress Note: A&P Assessment and Plan (1) ESRD (end stage renal disease): Code(s): N18.6 - End stage renal disease Status: Chronic Assessment and Plan: * HD today * continue outpatient dialysis schedule of Mon/Mon/Monday * follows with Dr. Salinas at [facility] (2) GI bleed: Code(s): K92.2 - Gastrointestinal hemorrhage, unspecified Status: Acute Assessment and Plan: * guaiac positive stool in ER noted * follow trend of H/H * PRBC transfusion per protocol * GI recommendations noted * EGD/colonoscopy results noted (3) Weakness: Code(s): R53.1 - Weakness Status: Acute Assessment and Plan: * possibly related to anemia and complicated by peripheral neuropathy * PT/OT as tolerated (4) Essential hypertension: Code(s): I10 - Essential (primary) hypertension Status: Chronic Assessment and Plan: * reasonable control at this time * follow trend of hemodynamics (5) Anemia: Code(s): D64.9 - Anemia, unspecified Status: Chronic Assessment and Plan: * due in part to ESRD * possibly worsened by #2 * Epogen with HD * follow H/H (6) Diabetes: Code(s): E11.9 - Type 2 diabetes mellitus without complications Status: Chronic Assessment and Plan: * follow accu-cheks * glycemic control per hospitalists Not opposed to discharge from renal perspective if otherwise medically stable. Will continue to follow. Subjective Date/time seen: 08/25/23 09:20 Interval history: Follow-up for end stage renal disease on hemodialysis. Tolerating dialysis treatment at the time of my visit (seen on HD at 9:10AM); no apparent issues or problems voiced at this time -- resting comfortably while on dialysis; no events overnight or earlier today; no distress noted. Exam Narrative: General: elderly but WD/WN female in NAD Heart: normal S1 and S2; no rub Lungs: clear to auscultation Abdomen: soft, nontender, nondistended, positive bowel sounds Extremities: no cyanosis or clubbing; 1+ edema Skin: warm and dry Objective Data Vital Signs Vital Signs: Vital Signs Temp Pulse Resp BP Pulse Ox O2 Del Method 08/25/23 09:15 83 154/53 H 08/25/23 09:00 86 129/54 L 08/25/23 08:45 76 145/70 H 08/25/23 08:27 79 146/70 H 08/25/23 08:18 97.3 F L 78 18 138/61 08/25/23 08:00 Room Air 08/25/23 05:32 98.0 F 81 20 126/61 98 08/24/23 20:49 97.2 F L 75 20 119/54 L 100 08/24/23 20:00 Room Air 08/24/23 20:07 75 08/24/23 14:00 97.9 F 63 16 97/51 L 100 08/24/23 10:30 Room Air Intake/Output Intake/Output: Intake & Output 08/22/23 08/23/23 08/24/23 08/25/23 23:59 23:59 23:59 23:59 Intake Total 693 068 5033 100 Output Total 1000 750 Balance -550 -270 1495 100 Meds/Results Medications: Active Medications Generic Name Dose Route Start Last Admin Trade Name Freq PRN Reason Stop Dose Admin Acetaminophen 650 mg 08/21/23 21:24 08/25/23 05:35 Acetaminophen 325 Mg Tablet PO 650 mg Q6H PRN Adminis
--- NOTE | 2023-08-25 12:03 | PCOTNOTE ---
The patient treatment was not able to be completed. Patient out of the room. Will plan to continue treatment per plan of care.
--- NOTE | 2023-08-25 13:09 | PM.DS ---
DS: Admitting Diagnosis Discharge Date 08/25/23 Admitting Diagnosis weakness DS: Discharge Diagnosis Discharge Diagnosis (1) Rectal bleeding: Code(s): K62.5 - Hemorrhage of anus and rectum Status: Resolved Assessment and Plan: GI consulted - endoscopy/colonoscopy 08/23 internal hemorrhoids noted, but no active bleeding EGD showed gastritis, small non-bleeding ulcer will stop aspirin until further follow up with PCP (2) Chronic anemia: Code(s): D64.9 - Anemia, unspecified Status: Chronic Assessment and Plan: stable (3) Insulin dependent type 2 diabetes mellitus: Code(s): E11.9 - Type 2 diabetes mellitus without complications; Z79.4 - senior living (current) use of insulin Status: Chronic (4) End-stage renal disease on hemodialysis: Code(s): N18.6 - End stage renal disease; Z99.2 - Dependence on renal dialysis Status: Chronic Assessment and Plan: -Dr. 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 -continue M/W/F dialysis schedule (5) Diabetic peripheral neuropathy: Code(s): E11.42 - Type 2 diabetes mellitus with diabetic polyneuropathy Status: Chronic Assessment and Plan: -Continue gabapentin (6) Pain of left heel: Code(s): M79.672 - Pain in left foot Status: Acute Assessment and Plan: -PT OT consulted. Weight-bearing of left leg for now -MRI left ankle to negative for injury/tear (7) Hyperkalemia: Code(s): E87.5 - Hyperkalemia Status: Acute Assessment and Plan: -receive dialysis on 08/22. -continue to monitor and manage per Nephrology (8) CVA (cerebral vascular accident): Code(s): I63.9 - Cerebral infarction, unspecified Status: Acute Assessment and Plan: History of. Continue statin, holding aspirin for now. DS: Summary Hospital Course Hospital Course: Patient is a 78 YO female with end-stage renal disease on hemodialysis, anemia, hypertension, hyperlipidemia, insulin-dependent diabetes, and diabetic peripheral neuropathy admitted from [facility] for evaluation of weakness and left leg pain. She has chronic pain in her legs due to neuropathy. She has not had any falls or injuries. Reports that the pain is similar but much worse than her usual neuropathy. While in the emergency department, she passed a grossly bloody stool which was Hemoccult positive. She had not noticed blood in her stool prior and denies epigastric and abdominal pain, bloating, belching, straining to have bowel movements. GI consulted and colonoscopy and EGD done yesterday. Imaging showed internal hemorrhoids, small non-bleeding ulcer. Stable for d/c per GI. Patient has not had recurrent episodes since admission. MRI of ankle showed no signs of injury or tear. Status at Discharge Functional status at discharge: uses cane/walker Overall status at discharge: patient is back to baseline Time Spent with Patient Time attestation: Total time spent providing and/or coordinating discharge services: Exam Narrative: General: Well-developed, well-nourished, chronically ill-appearing in no acute distress. HEENT: PERRL, EOMI. Neck: Supple. No JVD. Respiratory: Lungs clear to auscultation. Cardiovascular: RRR Gastrointestinal: Abdomen is soft, nontender, and nondistended with positive bowel sounds. Skin: Warm and dry. Left heel is boggy with slight hyperpigmentation Extremities: No cyanosis or clubbing. Bilateral lower extremity edema, left greater than right. Left upper extremity fistula with palpable thrill and bruit. Neurological:She is oriented to name and date of . Cranial nerves 2-12 are grossly intact. Psychiatric: Pleasant and cooperative. DS: Data Data Completed and Pending Completed studies during hospitalization: Pending at discharge 08/23/23 15:45 Surgical [PTH] Routine Labs on day of discharge: Labs from
[2023-08-25] MEDS: CALCIUM ACETATE 667 MG TABLET 1334 MG PO (13:35)
[2023-08-25] MEDS: GABAPENTIN 300 MG CAPSULE PO (13:36)
--- NOTE | 2023-08-25 13:45 | PC.NURSE ---
RN called [facility] and spoke with [employer] secretary who transferred me to the unit the patient is returning to. A woman answered but then put me on hold for over 5 minutes. RN had to take another call so she had to hang up. While RN was on other call facility vehicle arrived to pick up worker patient. RN will try to call and give report again.
== END 2023-08-25 14:05 ==
LOC: ANHED 09:06 → ANH3MEDSUR 13:49 → ANHIMU 20:47 → ANH3MED 08-24 15:05 → ANH3MEDSUR 08-28 09:41 → ANHIMU 08-28 09:41
PROVIDERS: Internal Medicine Gastroenterology; Physician Assistant; Student in an Organized Health Care Education/Training Program; Admitting Provider General Practice; Emergency Provider Emergency Medicine; Visit Provider Internal Medicine
PROC: 0DJ08ZZ Inspection of Upper Intestinal Tract, Via Natural or Artificial Opening Endoscopic (ICD-10-PCS; CPT 43235; principal; 2023-08-23 15:30)
DX: K62.5 Hemorrhage of anus and rectum (principal); K44.9 Diaphragmatic hernia without obstruction or gangrene; K29.70 Gastritis, unspecified, without bleeding; K57.30 Diverticulosis of large intestine without perforation or abscess without bleeding; K64.8 Other hemorrhoids; I12.0 Hypertensive chronic kidney disease with stage 5 chronic kidney disease or end stage renal disease; E11.43 Type 2 diabetes mellitus with diabetic autonomic (poly)neuropathy; E11.22 Type 2 diabetes mellitus with diabetic chronic kidney disease; N18.6 End stage renal disease; Z99.2 Dependence on renal dialysis; D63.1 Anemia in chronic kidney disease; E87.5 Hyperkalemia; E11.42 Type 2 diabetes mellitus with diabetic polyneuropathy; D64.9 Anemia, unspecified; M79.672 Pain in left foot; R90.82 White matter disease, unspecified; Z20.822 Contact with and (suspected) exposure to COVID-19; R41.841 Cognitive communication deficit; K21.00 Gastro-esophageal reflux disease with esophagitis, without bleeding; E78.5 Hyperlipidemia, unspecified; F32.9 Major depressive disorder, single episode, unspecified; Z66 Do not resuscitate; F17.210 Nicotine dependence, cigarettes, uncomplicated; Z86.73 Personal history of transient ischemic attack (TIA), and cerebral infarction without residual deficits; Z79.4 Long term (current) use of insulin; Z79.82 Long term (current) use of aspirin
CPT/HCPCS: 43239; 45378; 36415; 36430; 36600; 70450; 71045; 73650; 73721; 80048; 80053; 80076; 81001; 82375; 82607; 82728; 82746; 82805; 82948; 83050; 83540; 83550; 83735; 84443; 85014; 85018; 85025; 85027; 85046; 86850; 86900; 86901; 86923; 87637; 88305; 96374; 96375; 97161; 97165; 99285; A9270; C9113; G0257; G0378; J1815; J2704; J3475; J7030; J7040; J7050; P9016; Q5105